=== PATIENT | male | born 1945 | race Caucasian/White ===

== ENCOUNTER 2023-11-03 21:03 | Outpatient (REF) | payer MEDICARE, SELFPAY ==
[2023-11-03 21:32] LABS: Basophils Absolute Auto 0.1 10^3/uL (0.0-0.1); Basophils Percent Auto 0.6 % (0.2-2.0); Eosinophils Absolute Auto 0.2 10^3/uL (0.0-0.7); Eosinophils Percent Auto 1.8 % (0.9-7.0); Hemoglobin 12.9 g/dL (14.0-18.0); Immature Granulocytes Abs Auto 0.16 10^3/uL (0.00-0.03); Immature Granulocytes Pct Auto 1.5 % (0.0-0.5); Lymphocytes Absolute Auto 1.4 10^3/uL (1.2-3.8); Mean Corpuscular HGB Conc 33.9 g/dL (29.9-35.2); Mean Corpuscular Hemoglobin 33.4 pg (25.9-34.0); Mean Corpuscular Volume 98.4 fL (80.0-94.0); Mean Platelet Volume 9.1 fL (9.5-13.5); Monocytes Absolute Auto 1.1 10^3/uL (0.3-0.8); Neutrophils Absolute Auto 7.8 10^3/uL (1.4-6.5); Neutrophils Percent Auto 73.1 % (43.0-75.0); Platelet Count 288 10^3/uL (150-450); Red Blood Count 3.86 10^6/uL (4.70-6.10); Red Cell Distribution Width 14.7 % (11.0-15.0); White Blood Count 10.7 10^3/uL (4.0-11.0)
[2023-11-03 21:46] LABS: Alanine Aminotransferase 17 U/L (16-63); Albumin Level 2.9 g/dL (3.4-5.0); Alkaline Phosphatase 98 U/L (46-116); Anion Gap 8.4; Aspartate Amino Transferase 12 U/L (15-37); BUN Creatinine Ratio 12.5; Bilirubin Total 0.6 mg/dL (0.2-1.0); Calcium 10.1 mg/dL (8.5-10.1); Carbon Dioxide 26.8 mmol/L (21.0-32.0); Chloride 100 mmol/L (98-107); Estimated GFR (African America >60 (>=60); Estimated GFR (Non-African Ame 51 (>=60); Globulin 2.9 g/dL; Glucose 95 mg/dL (74-106); Potassium 4.2 mmol/L (3.5-5.1); Sodium 131 mmol/L (136-145); Total Protein 5.8 g/dL (6.4-8.2)
== END 2023-11-03 21:04 | disposition home or self-care (01) ==
LOC: LAB 21:03
DX: C34.90 Malignant neoplasm of unspecified part of unspecified bronchus or lung (principal)
CPT/HCPCS: 36415; 80053; 85025

== ENCOUNTER 2023-12-28 19:04 | Outpatient (REF) | payer MEDICARE, SELFPAY ==
--- OUTSIDE RECORDS SUMMARY | 2023-12-28 19:11 | XMS_ITS | CCD ---
Author Organization [facility] Care Team Providers Care Ec Teacher Name Role Phone NIKKO GONZALEZ Primary Care Physician MD Jing Camarillo Attending Provider [phone] MD Jing Camarillo Attending Provider [phone] NO FAMILY, PHYSICIAN Primary Care Provider Unava ilJing Harrington Admitting Unavailable Jing Camarillo Attending Unavailable NO FAMILY, PHYSICIAN Primary Care Unavailable Jing Camarillo Attending Unavailable NO FAMILY, PHYSICIAN Primary Care Unavailable Jing Camarillo Admitting Unavailable Umang Abad MD Attending Unavaila ble BONNY LYNCH Admitting Unavailable BONNY LYNCH Attending Unavailable NIKKO GONZALEZ Primary Care Unavailable NIKKO GONZALEZ Primary Care Unavailable JING CAMARILLO Admitting Unavailable JING CAMARILLO Attending Unavailable NIKKO GONZALEZ Primary Care Unavailable NIKKO GONZALEZ Attending Unavailable NIKKO GONZALEZ Admitting Unavailable JING CAMARILLO Attending Unavailable NIKKO GONZALEZ Primary Care Unavailable Jing Camarillo MD Primary Care Provider [phone] KATRIN PATTERSON Referring Unavailable JING CAMARILLO Primary Care Unavailable KATRIN PATTERSON Attending Unavailable JING CAMARILLO Referring Unavailable JING CAMARILLO Primary Care Unavailable JNIG CAMARILLO MD Primary Care Unavailable JING CAMARILLO MD Attending Unavailable JING CAMARILLO MD Primary Care Unavailable Franny Lyman Attending Unavailable Franny Lyman Admitting Unavailable JING CAMARILLO MD Referring Unavailable JING CAMARILLO MD Primary Care Unavailable JING CAMARILLO MD Attending Unavailable JING CAMARILLO MD Admitting Unavailable DR. KATRIN PATTERSON Attending U navailable ASSENDR. KATRIN GUZMAN Admitting U kalenailable DANIELITO TIRADO, JING Johnson Primary Care Unavailable Nura, Franny Attending Unavailable Nura, Franny Admitting Unavailable DANIELITO TIRADO, JING Johnson Primary Care Unavailable DANIELITO TIRADO, JING Johnson Primary Care Unavailable Pebbles, Tam Johnson Attending Unavailable Pebbles, Tam Johnson Admitting Unavailable DANIELITO TIRADO, JING Johnson Primary Care Unavailable Nura, Franny Attending Unavailable Nura, Franny Admitting Unavailable DANIELITO TIRADO, JING Johnson Referring Unavailable Pebbles, Tam Johnson Attending Unavailable Pebbles, Tam Johnson Admitting Unavailable DANIELITO TIRADO, JING Johnson Primary Care Unavailable DANIELITO TIRADO, JING Johnson Primary Care Unavailable DANIELITO TIRADO, JING Johnson Attending Unavailable DANIELITO TIRADO, JING Johnson Primary Care Unavailable DANIELITO TIRADO, JING Johnson Primary Care Unavailable DANIELITO TIRADO, JING Johnson Attending Unavailable DANIELITO TIRADO, JING A Attending Unavailable DANIELITO TIRADO, JNIG Johnson Primary Care Unavailable DANIELITO TIRADO, JING A Attending Unavailable DANIELITO TIRADO, JING Johnson Primary Care Unavailable DANIELITO TIRADO, JING Johnson Attending Unavailable DANIELITO TIRADO, JING Johnson Primary Care Unavailable DANIELITO TIRADO, JING Johnson Attending Unavailable DANIELITO TIRADO, JING Johnson Primary Care Unavailable DANIELITO TIRADO, JING Johnson Attending Unavailable DANIELITO TIRADO, JING Johnson Primary Care Unavailable DANIELITO TIRADO, JING Johnson Primary Care Unavailable DANIELITO TIRADO, JING Johnson Attending Unavailable Allergies Allergy Classification Reported Allergen(s) Allergy Type Date of Onset Reaction(s) Facility (1 source) No Known Medication Allergies; Translations: [No Known Medication Allergies] Propensity to adverse reactions to drug (disorder) [facility] Medications Current Medications Medication Drug Class(es) Dates Sig (Normalized) Sig (Original) atorvastatin 20 mg oral tablet (1 source) HMG-CoA Reductase Inhibitor take 1 tablet by mouth once daily atorvastatin (LIPITOR) 20 mg tablet Take 1 tablet (20 mg total) by mouth nightly. 0 Active benzonatate 100 mg oral capsule (1 source) Non-narcotic Antitussive take 1 capsule by mouth three times daily as needed for cough benzonatate (TESSALON PERLES) 100 mg capsule Take 1 capsule (100 mg total) by mouth 3 (three) times a day as needed for cough. 0 Active bisacodyl 5 mg delayed release oral tablet (1 source) Stimulant Laxative Start: 06-28-2023 take 2 tablets by mouth once daily as needed for constipation bisacodyL (DULCOLAX) 5 mg EC tablet Take 2 tablets (10 mg total) by mouth daily as needed for constipation. 30 tablet 0 06/28/2023 Active 24 hr buPROPion hydrochloride 150 mg extended release oral tablet (1 source) Aminoketone take 1 tablet by mouth every twenty-four hours in the morning buPROPion XL (WELLBUTRIN XL) 150 mg 24 hr tablet Take 1 tablet (150 mg total) by mouth in the morning. 0 Active carvedilol 3.125 mg oral tablet (1 source) alpha-Adrenergic Wendy, beta-Adrenergic Wendy Start: 06-19-2021 take 1 tablet by mouth in the morning, then take 1 tablet by mouth at mealtime carvediloL (COREG) 3.125 mg tablet Take 1 tablet (3.125 mg total) by mouth in the morning and 1 tablet (3.125 mg total) in the evening. Take with meals. 0 06/19/2021 Active cholecalciferol, vitamin D3, (VITAMIN D3 ORAL) (1 source) take 2 tablets by mouth in the morning cholecalciferol, vitamin D3, (VITAMIN D3 ORAL) Take 2 tablets by mouth in the morning. 2000 units. 0 Active famotidine 40 mg oral tablet (1 source) Histamine-2 Receptor Antagonist take 1 tablet by mouth in the morning, then take 1 tablet by mouth at bedtime famotidine (PEPCID) 40 mg tablet Take 1 tablet (40 mg total) by mouth in the morning and 1 tablet (40 mg total) before bedtime. 0 Active finasteride 5 mg oral tablet (1 source) 5-alpha Reductase Inhibitor take 1 tablet by mouth in the morning finasteride (PROSCAR) 5 mg tablet Take 1 tablet (5 mg total) by mouth in the morning. 0 Active folic acid 0.8 mg oral capsule (1 source) folic acid 0.8 m g capsule Take by mouth daily. 0 Active furosemide 40 mg oral tablet (1 source) Loop Diuretic take 1 tablet by mouth once daily furosemide (LASIX) 40 mg tablet Take 1 tablet (40 mg total) by mouth daily. 0 Active Lanolin / Mineral Oil / Petrolatum (1 source) take 1 drop(s) into the eye(s) every six hours as needed lanolin/mineral oil/petrolatum (ARTIFICIAL TEARS OPHT) Instill to eye. Instill one drop in both eyes every 6 hours as needed 0 Active lisinopril 5 mg oral tablet (1 source) Angiotensin Converting Enzyme Inhibitor take 1 tablet by mouth in the morning lisinopriL (PRINIVIL,ZESTRIL) 5 mg tablet Take 1 tablet (5 mg total) by mouth in the morning. 0 Active magnesium hydroxide 80 mg/ml oral suspension (1 source) Start: 06-27-2023 magnesium hydroxide (MILK OF MAGNESIA) 400 mg/5 mL suspension Take 30 mL by mouth 2 (two) times a day as needed (if no BM by post-op day 2). 118 mL 0 06/27/2023 Active sennosides, fpc 8.6 mg oral tablet (1 source) take 1 tablet by mouth in the morning, then take 1 tablet by mouth at bedtime senna (SENOKOT) 8.6 mg tablet Take 1 tablet (8.6 mg total) by mouth in the morning and 1 tablet (8.6 mg total) before bedtime. 0 Active spironolactone 25 mg oral tablet (1 source) Aldosterone Antagonist take 0.5 tablet by mouth in the morning spironolactone (ALDACTONE) 25 mg tablet Take 0.5 tablets (12.5 mg total) by mouth in the morning. 0 Active tamsulosin hydrochloride 0.4 mg oral capsule (1 source) alpha-Adrenergic Wendy take 1 capsule by mouth once daily tamsulosin (FLOMAX) 0.4 mg capsule Take 1 capsule (0.4 mg total) by mouth nightly. 0 Active vitamin b12 0.5 mg oral tablet (1 source) Vitamin B12 take 2 tablets by mouth in the morning cyanocobalamin 500 MCG tablet Take 2 tablets (1,000 mcg total) by mouth in the morning. 0 Active warfarin sodium 1 mg oral tablet (1 source) Vitamin K Antagonist Start: 05-20-2021 take 4 tablets by mouth every other day, then take 5 tablets by mouth every other day warfarin (COUMADIN) 1 mg tablet Take by mouth. 4 mg every other day, 5 mg every other day 0 05/20/2021 Active Completed/Discontinued Medications Medication Drug Class(es) Dates Sig (Normalized) Sig (Original) DULCOLAX, BISACODYL, RECT (1 source) End: 11-05-2023 DULCOLAX, BISACODYL, RECT Insert into the rectum as needed. 0 11/05/2023 Discontinued traZODone 25 mg oral capsule (1 source) Serotonin Reuptake Inhibitor End: 11-05-2023 take 25 mg by mouth once daily trazodone HCl (TRAZODONE ORAL) Take 25 mg by mouth nightly. 0 11/05/2023 Discontinued Problems Active Problems Problem Classification Problem Date Documented Date Episodic/Chronic Acute cerebrovascular disease (1 source) Cerebrovascular accident; Translations: [Cerebral infarction, unspecified] 08-26-2021 Chronic Aortic; peripheral; and visceral artery aneurysms (1 source) Abdominal aortic aneurysm without rupture; Translations: [Abdominal aortic aneurysm (AAA) without rupture] Onset: 08-26-2021 08-26-2021 Chronic Congestive heart failure; nonhypertensive (1 source) Chronic systolic heart failure; Translations: [Chronic systolic (congestive) heart failure] 08-26-2021 Chronic Essential hypertension (1 source) Hypertensive disorder; Translations: [Essential (primary) hypertension] 08-26-2021 Chronic Other connective tissue disease (1 source) History of reverse prosthetic total arthroplasty of left shoulder; Translations: [Presence of left artificial shoulder joint] 11-03-2023 Chronic Other connective tissue disease (1 source) History of total knee arthroplasty; Translations: [Presence of right artificial knee joint] Onset: 08-26-2021 08-26-2021 Chronic Other connective tissue disease (2 sources) Presence of left artificial shoulder joint; Translations: [Presence of left artificial shoulder joint] Onset: 11-03-2023 Chronic Marcella-; endo-; and myocarditis; cardiomyopathy (except that caused by tuberculosis or sexually transmitted disease) (1 source) Cardiomyopathy; Translations: [Cardiomyopathy, unspecified] 08-26-2021 Chronic Pulmonary heart disease (1 source) Saddle embolus of pulmonary artery; Translations: [Saddle embolus of pulmonary artery without acute cor pulmonale] Onset: 08-26-2021 08-26-2021 Chronic Unclassified (1 source) prison (current) use of anticoagulants; Translations: [predatory animal exterminator (current) use of anticoagulants] Onset: 12-16-2022 Past or Other Problems Problem Classification Problem Date Documented Date Episodic/Chronic Biliary tract disease (1 source) Gallstone; Translations: [Calculus of gallbladder without cholecystitis without obstruction] Onset: 08-26-2021 08-26-2021 Episodic Fracture of lower limb (1 source) Fracture of femur; Translations: [Unspecified fracture of unspecified femur, initial encounter for closed fracture] Onset: 08-26-2021 08-26-2021 Episodic Joint disorders and dislocations; trauma-related (1 source) Anterior dislocation of shoulder joint; Translations: [Anterior dislocation of left humerus, sequela] Onset: 06-23-2023 06-23-2023 Episodic Neoplasms of unspecified nature or uncertain behavior (1 source) Neoplasm of lung ; 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 C[facility] Summaryon 11-16-2023 Coding Summary HTMLBase 64 XxtqtaxiLPk9wIb+PGhlYWQ+PE 6UFXCcK99tiIHtrU9pP8VJBAoN GobyEGYAOGjJEpLblzDsGD0gwL NjZXJu IC8+HW2pSILcLkwbyHGrv7C4yQ K6R90dnt5gELvtsKD4VSAdKcFv gldbu8ggiSh3ILiiMmneUpXh YUNpgK61YLB3iA78Ij69uMUqwJ Oiv9uadPx1GjMpPTBkGFT7zRiu EHfhz1ErMSEjH82mdPOnt3H2 BXPhaTagsKYcJcCtkAB1iI4dPI yecefwq7zgwlpxJks5gf53mGMu m5G4cRG8G7OxzfF7AXOdjBJa PcuxpQJJpY7kclucp7efeyhgJw YlPWWwFHo6JOg3CXZwyCvcCnMi SK40NGY3BYVulwWtJ2MrBUWd iZxtLlY0h5T6Sp4WC7MNHulqO3 VNTUFSWTwvdGQ+FJ75gz40O5Ky GoveEql6HCTiSPF4hYH9iS7e YBRtSJwyu1R2hAL1I4UcvpEvfe 9se3lySWQdULpvY89atFVpu3J2 OAYkiUZ7HNYsfDlfMlWceB08 Oyc+ZWVqyXerz2ClKjjbj9jdv1 fyrPp2OivfDYZlruDoeEkhXBH8 i5UcQy8uXBTguHC7zMQ6mS0h VbKyHyF0GMgmJ423WgAleJDjWy ftE86jJ7ZlkYE+SESjDxa7HOIy yYlyPA2dE8SaDMUwayitsAEz kBybNV7eGCOptufxRWJbiC1dVW WqB0n8SyQjSnR3HDbrA2MwOVKy ksbpKm07bQ5eCrZuAdM6TIfh L8MjqcE8GOUnsXOlMXrnHTU7Q2 7jc3Q4UGFaXDWnZNJ1jZO6jB4k bGlnbjogbGVmdDsgdmVydGlj HYsoRNsqM441UBFeaAmgJpQmFA luZyBEYXRlOiAgMDIvMDgvMjAy NDwvdGQ+WKXuHYS8tVjoCJXt qSSlFFspMr6oePpufYgjXY0tFS TaettgBHFkyL2oZLFzeEEtaYza UL1yAURdgixdd421YrKbSVH0 UBFlrIKeB4VntU4yMgOnNVMcLN RfH6NwuLNkVYzpV610NWvcReQ7 TOFawpYlQ7WcVFSxdFpsMgQ5 e2Q0Fa8Vw2EvrjyjT7IjmQGtKb MxPxnpEVe7Z9EjKkcwjPW+PC90 CNEkPM87EOd7UJL0iCqpAXgp AYIbV7ZqiW0rZeNySSSyOWMuSy c+PHRhYmxlIHdpZHRoPScxMDAl ObNhoHkqAV7nGj3eLDSzTLYp uQdeaJLiXdJvk0vuQKTfQKicAO 6puBsaV5IsjLP0PXCfa0y1Iw79 C94oO7MirOO+ZTJyuKM1gKD5 lP3eSzSmCeH9AYuvF561IoVenQ RnLhqth3yec5duxEs8UdK5JHTh uuRysEraNWW8s9CmQr51Y72a IHdpZHRoPSIxNSUiIHZhbGlnbj 3gdB5hEw9+ZZQfdAI9qLC5qL8y NsJiVrF7WPauZ530MpZamXAv Awqzh2tlq8qhiSe0SbEaGSUvpc KixJrqQLM1i3FoWn90A2ZsrUtk x3RfNdb5my62nGPgk1Z4lTL4 N4NfJWYbmavzePQkfPpmCH0qCP MpurobFNUeiS7iGZIkY9n9BqPt EdU3QUdxE2LdbuM9WUEjsKIh HGNmwXDVdG5uznlih3dvhwpaUu NsFIIfSIk6JCd4UGQdoDszOrJx GYU6StN7EQU3nQPpnY0zhWtw rppgxO8mUsm+VRF6jHVeqBPMIP 1lOjwvdGQ+WIMmHLC9mWibSOfw CUZubO3tMIEgP1z2YkMhNdJ9 ZJruO5SrbpW3FEXmeXLkDMOjhD ZMpA5rmpfte1fgwpiiYjHiWEFc XLo0XWo3ORQrdMmeBcXuFLU5 JnK3PSE2vIZrhF4wmEgbjonpkW 9wOyc+DfrzyWnjFJN2DQh5J4Sb Zlf5UBLioOzgEN6jsQCeJYll Rg1lzTsqsHboJP9aSGLiasqiu2 26YmTen7dcSGRdbPFfBJtjACL4 S76rp1I7BJRkGMZfZKR5rUO3 sG6oxIvogltndOBdxKjbsgOniB gmLYdzGJyoA327ICKwaDohMbHg YVu1C8DgDdp7ZMCdzKqcCX4o wMBnVBzpKp5thCfsbZkuZZ6sMT Odzcpka702CiQqo2kbWVOpzHUl OEsoRQT0U08rf3M2LZQgUIPj OFL1dGY3jC6ueKhvyogloYNagZ ihufJrgYgpIIhrRNghE896MSMm kNlmCcIcjOn4Y4NmWyj7BSUk zOvoSG1vpGYfHXoiBr4peZbghV fvJT5xLRKpyufad577RrMjb5zp RSYsqKVjFAudNLP1B09la3U6 NPIcTOPjDCA8rTJ7uY3xhYmqwb ogbGVmdDsgdmVydGljYWwtYWxp Y569GYSrsXxxMnSvzFwvwjJv JBwoBCa3D0KyKnapwCX+PC90YW OqVK18lATxgWOmd0lcpWx6FhQf WEOrTTD7xJprATgnv8MrWVLh W46keLXya0K7MTGgyAopxXEcCu DagGM3sW5uTLacgrjji4qpjhcb Fdcsy9xckd98aS26R03jBApr HGZnQISqKQXxDKJtiFoilq9lkX 9wIi8+OTCquAW9jJO1qQ9iJKAa YpK0JGjuC695DpGvoRVpRgnh f4ele5ncaGa1JhL2ZGZbbpKpxC buTQU9j3VjAo81S70eURtqGJRn POXtLERqSBPcvZckrj9bcW4f Ii8+QDUsgGX1gNW1lF9hZdHrWm A0CWnsF478EgGcxBAbQknlF86g A9KhrGR+RDTlYvz6SOKrkOfh MF7xcCZbCFweLt6yAHC7TqFaCi GrYYzfO2CyVGTflzsvlfdrdXW9 TWCqYVRmwI36Kb0iiYdgPKBh eTRKhH5bsante1pqxfrxJgMpZE TsVSf2AQk0OOSuvGosOcIoOJN1 FiG9HNR4kUTbnT7abLhplubv aF2cY0CkKREzinvbVz44mQ7wFj XsPcN3VKqlLno+U3pUNtmuS6AX AVFJOCp8O5OgFtr7EFEvjMwv OQ4fiYPrAAipZi5blYjhnPjqXM 4fXVLvlrqqGBVudJ3sIWJrnSXe pQfyYK6rYSNyhbznt102NxTq AZX9OERzyGPlU6CfbG0qEsDiYE AxDEOaF2AdqROgRFnqS901ZZcl QsX0ATXyyxTzD5SeRTOylUwi UmN1r1I0Zu4dTw5rBY8xPEJ2RC 21DA60cCZsm9I1aWG1P7PlDXRn vzvutvajjDM5AREkHYZauQ63 jAUoOLrnXz7zh9U7d646NMRsVS JvyH20Yz7rbKkxIACdsUKLxJ0c txwev3ghjdqqUbVwYIRrPEz4 GYi2ULPxtYolHmVaSTP5YfH5MB G4dAGghJ8jsYmweyawcG8hCtd+ GmdjDZPszkN3M9KqMju2LOPx mEaaRL2dlSAcGRipAx4tsRgibF tcWH4yVWGkmyftRPHlbZ4bARTi qOAonQihNJ2zOISrbuyvw453 CmLvDDH2RYMgiVHtC9QodQ7fYh YzPSWrJXIkC0JegGDvLDsaB046 DLvwQrL6ATDkpnTjW9AsGYUr qXgsTlR2e0N1Tu8HIWvKHJ90NM 63cQCum5V1kZM2L3TxHHUfhpce gocjpHE0BBOgNGDrmJ81tBTu IFjjPi4xj6Q5k130TQNsZKNwaF 48Bn6gbQoyGUAwtMVBlD4tipcv q2bkwyroThLjFJFiBMw9CMn4 HEWorMqoLhCoOOI5JhI7JKC6iQ LbuR8veXjpiffshX3bXdc+UmVj dJEspK3jGG68xODqxGpzwhY7 T9BnJpxqzIH+TA43FTWjUE23qA VbmTHbc3weePm9IoAgQHVtTEU6 gOjoLWrnn9YtCSXnY40odDTj m2D7GMAjqFychSMcEzApuFM2yM 3yBQglylnyr1xlhoslBktez3ct ya20fH69C27dMFhwQUWaMTFe OPTbRAWxsQsnaz6zmJ9jMy8+PG VcbZX9xDF5zH7hGzVzVqC9FNne E399DhDnxNXyTbhfm4nvh6rx uHi4EvLnFXJywtKjnCrsMDH8g7 JfNq06C88bEBpdVJRsJHGhTEEa LFVfvGjkkj0bhI6ySc2+PC9j i5ohde74rH56rWY+TZGqEDL2aX ylBJtdRATapO5gJCeuLeD5ZTJd CsRgcT10jKStTZomBo7zpGbe yHejSS2gYVAchjarq326RzBgq3 yhBLSybIDeGRojXCY2P62qj8C1 ONNbTCWnYMX3yGQ0jN3rhIim bjogbGVmdDsgdmVydGljYWwtYW psU993ZHPxhMxvSlBrjUKuG1ig hzNOCE6kPhpapTN+PHRkIHN0 vRduSLauYXMtcJ2mYGDiX4k1Vf OlCsU2GXfyN8RqpuR5ZSFvnKWb KLEuuXYNhV3iltgst2dysklf DaQzEKSfCZb7GKu0NLBnwZddXi XfGCS7HpS2TOT9bDKhyT5eaRgh qdeyaM3eZpn+RklOOjwvdGQ+ NYKmAGQ3lHgjRMlkQSFrbW1yGV KdG5g6SoNsAlC3YCdeZ3KwazD3 TFCnpYVeIWEvhFIQcP1lfpfl y7fbindkEfLtICLtZKp4ODv2GZ ComTtwTgGuAXL6GhP4GGP3tWUe fO6mbDgchrwdbH9dVtl+TVJO OjwvdGQ+RQFuYYQ4aTihPCqjZV FwsT0nNSVmC1i4ShYoApP8ZZhq N3AxmrJ4GNBkeESaQIVhoWPJ bW2icrzmz2emovarDjBpZLAoUU x8JEl6RXSdtEjeTyAdHME5EeW9 IBS9wPOjaL8vkSshbtvbmT8n Oyc+ZBE0WEB7FP53BM44E7TgLy wvdGFibGU+PHRhYmxlIHdpZHRo QYtoAGBqGqRvzShuWV3aMd9i ZGV (more content not included)... [facility] Outside [facility] 11-08-2023 Outside Records [id number]#1.00OTGTIFF [facility] Lab - Other Lab [facility] - Other Lab Results [id number]#1.00OTGTIFF [facility] Provider Orderson 11-06-2023 Provider Orders [id number]#1.00OT[facility]IFF [facility] XR SHOULDER LT MIN 2 VWSon 0 11-03-2023 XR SHOULDER LT MIN 2 VWS XR SHOULDER LT MIN 2 VWS CLINICAL INFORMATION: S/P reverse total shoulder arthroplasty, left TECHNIQUE: XR SHOULDER LT MIN 2 VWS 3 views left shoulder were obtained. Patient status post left shoulder arthroplasty. Hardware appears intact. No periimplant fracture. Alignment appears anatomic. IMPRESSION: Satisfactory postoperative shoulder Finalized by Сергей Masterson MD on 11/03/2023 12:32 PM [facility] XR Shoulder - left 2 Viewson 11-03-2023 CLINICAL INFORMATION : S/P reverse total shoulder arthroplasty, left TECHNIQUE: XR SHOULDER LT MIN 2 VWS 3 views left shoulder were obtained. Patient status post left shoulder arthroplasty. Hardware appears intact. No periimplant fracture. Alignment appears anatomic. IMPRESSION: Satisfactory postoperative shoulder Finalized by Сергей Masterson MD on 11/03/2023 12:32 [facility] CLINICAL INFORMATION: S/P reverse total shoulder arthroplasty, left TECHNIQUE: XR SHOULDER LT MIN 2 VWS 3 views left shoulder were obtained. Patient status post left shoulder arthroplasty. Hardware appears intact. No periimplant fracture. Alignment appears anatomic. IMPRESSION: Satisfactory postoperative shoulder Finalized by Сергей Masterson MD on 11/03/2023 12:[address] [facility] Radiology Study observation (narrative) [facility] XR Shoulder - left 2 ViewsOr dered By: Сергей Masterson on 11-03-[address] [facility] Work Phone: Coding Summaryon 10-30-2023 Coding Summary HTMLBase 64 MxsclyyoJLd1aNk+PGhlYWQ+PE 8YKCAcA88ceHAxmM0nG1QYYQhN UalnNNYWZKlESkFtceBvAF6sxL NjZXJu IC8+NB2pQDSqVbylqBFsi6J5qD S9V47cwl3eQIcoiII1GHPqAuQq dqjrk9ydgHh0MQxtMickKsVo HQCytN04UID6fX60Zl07rXLaeY Wow2fihXq5FwHhFLVyLUO9rBgd ENqrs5ViCMOuO21tpYMqx7Q0 YHWutRyndILkBmBwvDF9lQ5wNP rxespwq5cuetvcAqm7vm52oKHj l6M7cSR2U5QudhS5ZLJvsTYf UqlbgQAQtE6uopkpt1rcohbcLe WhEPUxJJz8WOe6QIWtdGqjGiXr BQ75PHM0HDRwjlCxL5XzURIh jDgkSbG1c8K7Ku5IK7THJgbpN8 VNTUFSWTwvdGQ+QZ61ca41M1Dx WsvhMjh1ZBWfMDJ8oTY3uJ0o YVFhLTgzr6J6xGM0P6IycwMlbm 2qx8mjSLQgAOmpL70iqMVql9X3 PKXyrEX5MYVmlKsyYjKgaZ76 Oyc+MBNhpLmsn3TvEaqon4qmr0 wxnEd7IegmGHYbcoQkrMudYVZ2 f2ViMb8kKNKilNR3dHV4mK0j OsEmRnJ5LHrsA820GbTaoRPxAg xyQ91nN6BwgFG+KZMeQud3CINo vTakOQ7xZ7UfSYEnuyeefJNe bDotSQ4nEDDmagijJUBjkI9mXL AnZ7w9JeImHmW8QVggF7HjTMJs zcrnKg82lV8pCtVzKpH2RDoz U1CmytD9XFZgeKLrUQcmFKF0X9 6ug4Z2CINpECXlGXX6jXS3hC2q bGlnbjogbGVmdDsgdmVydGlj ZAkxZVmiN085EFYboYodMoKpIJ luZyBEYXRlOiAgMDEvMjIvMjAy NDwvdGQ+QWNfSRS0cOkzCKSg sNTbQCzkEr1cbJkkaDhyLO4vSJ FsjnsmSZTayL6hFUQwnGApkBru GJ3cMPHsbinee110CuImQWR4 HSDgtVXvK6JghV2mPeOnUREeCV OaF4AnvUZqWBmqX029FOfxZnU8 ANAbnzEfD6OnRAJbiJsuLyU5 n0L7Sa7Nj4IitbfrK3XzaWRqUf DcPkcvVIt8S1AqVuazlGZ+PC90 BSBjWK51AXj7DHO0sOixAMrc CILdW0YomZ2mNkXcNPJqEPCpRt c+PHRhYmxlIHdpZHRoPScxMDAl PzBrjPpkNR1wYu6oZTKtFDYu fPvqfRPqMrZyl4arTNGyFFxiBX 3eaWbbJ7LxsJG8GKHoq6s5Ui31 S05vN9ZazUK+TBEjnXI5qGV0 aJ9xSbBkYqR4YOwjK739JzBnoP TsKcrhu4dwx9dmtFz2HrZ4TSJm xzNadIhtFGQ0u9VqAp95R63z IHdpZHRoPSIxNSUiIHZhbGlnbj 8htM4oPb6+KXSmdTX7oWK6nA7d MwSrXkW4VKyiC565IoFliIMr Eljmy7heu5zmkKy3KhWySOGyiq SjnGipWHD7s9AoKv79R1TwgOem r8RoRcu2ni39cZSwn4X1cJD1 D0DxZGLqgycmhENbpJddKT0eWB SldlvxEOSxiZ1yBLAeD7u7ZwFz TdO2FKyrR2TfcoQ2YUVohSVu GFJbzLQCyK5tjjuhi6ohprydAg NtEPHeSEf7JAv2RZKwoVnbQyUp GRM7VzS9OSX3rBPsgA6faFzs xgzxnJ4cDbk+DKN4gYGeeIKGWO 1lOjwvdGQ+FPPjSJK4nPkkDHyg UZGuqW5kHLMtB8a4RfQhDlH5 ZSlhB6FtozG9NVKccOBiIWHxjD KAhD2zeldph5yqoqzqKrPqLZOp KDu0SAl9WLDlmRbgLsQlJDB7 YsS1TGL2mHXflH0bnSevzijnnG 9wOyc+ZemxkDxlQJX8CNg2G6Zm Leb7DNRemJdpKT7rgXByWHgf Zb6doFyjkHrqGE7rSLGlbakhi3 60SwKup4amFOByiFTmRGdiRHV1 W15fv9L1QAKiJQMnQOS2lQW8 sM9qyKynexilsQByxOlwdxNzjF cgAQriVNztX794GETddBkcYeCx DPo2J7RhWbo1KAZrtAehAD1i nCXkNWrtEz8ddGgqkVcnUK0kCD Kxoxykh083RkJxg6rmOGLjtLZr MWboVHN9V80fv0Q9UTLsIXLb MDD7iAL7vJ5maDyvyikjuKQhiQ wtzyIgnQprLQwyPGkiT489FWXe pYquQbJkmZq4K1AzLsr1XSOh jGluVG9pbWKyJNmqDa1dlDoavU pkAC2iTAAjsuujk755TfImv9yx ECMayDWxZHgbFOO2D49fa7R9 UZZiQKLvNOV9nTV1kV5gzPelyd ogbGVmdDsgdmVydGljYWwtYWxp E824IWArfRpkDsUcsBonznHj QMznDQk1Q1WrVnmcqCH+PC90YW IsGQ10cGPffIAna6deiQg2ZsFm HYGqKCI9vWabXCndg1IuSNSn W82svRChx7V4MALmyCdtbTYwRi SojMR3pJ8kUCdsyqcja3stqiib Aqxdk2phhy12qT88T33dXFnx QHBhOLKcBKZeBFSgmFkivn7ynV 9wIi8+GFArkWJ9bHS4aN6eBEGw AsJ4PWwxF912VmWjgSYzJevr f9pjd3bvdGw4XwS5BINpjmSsmX jeWHD0d8CiZk45H71kKSekBCBb YNJmYFRzVNAkbDscxh0tvW3g Ii8+UNDovJL5sBN8hK6jOiPmRo F7ROqcX943YqSfrBWyNstqT05e I6JzyAC+FGLjVom9YBNoqSvi QO3mzBPyHXfsWe8qDWN1RzRkRi LcABtqZ3WlXMLizsglflksdJC6 SLMsXBBbeV14Fr8lzSjcCHRd lDGWrI5jswrup4whpeccWlVgGM LyRLs2PYa0WZMiqOavKuUkTCG2 GeQ8JEW8tJBmeH5qiSetxzmk kX3lO9XkXDSvhjyzDl38eF9nQq PyTyC0QFcoOew+Q6rRDccwT3WI SJZNLYf1V4LaYax4SJFscRip JJ6yrGVjPZcdQz1elKpowVtiCJ 8mTXBgloknLCAsvW0uIXQxvPXv oWkhRE8vOAPycmxjc002GxPn BUG7KOUywXAiX8XamK1sDpBlKU LdESLpZ3NmyUJgKVffM308TPqk FjE4PITfppYxC2MmCTIgfCkn PvD4e3O0Wb6uFi4hGO7gCHK4FB 95OJ73pHMha1G4yHP7Q3VuKHWf kmnhxeruyUD4UMGjRLGvxD31 lRIsWArlTr7ge4F7a627KHZtUQ FahH50Fw0xrIyfUDZbpDALwQ3i uvybq6pmaeouMiBpIFIzUSg5 CXj7UHLokZfsWwChEWJ1QiY3MY O0bWKsbS4ymQwtwhlarQ7cDig+ YtxeYGNhloT7M8TfLie6YIPf pJooDU5ziYQhXQaaNl8nzVsltG hmME2gZFVyoszxDVTcvT7jQZXs nTOqxRnxYQ2oCDOesuujl997 NoEaSCM4QDNooWDwD1FsyE7iZv AnQJMgLJIhM2MxqGBmVGmuM875 GNgkPvM5RZVapxSvC6XzDMDy gOmeTpU6n7A2So3NZReSPF19XU 68gJAnl7T5fZK7Z2McPXOoiare blfgkOV9KRLiOKVcgZ26rVBv JJikVd8ow1F4t317YXEwWIMoxZ 09Qa3lpOrxOCQqhBYStF9rtnqz t7vqrixtVsXsRCGtGMl9DRq9 HCHzwXrbGxKeNTH8DvS1CTH8rD WmnK1mpUvpbyctvK2bSeb+T1A8 R5TiIugcmLD+BN23TOHhWV05 rODliOZdz7lamTy3XsKhXEVoTD Q7fYowXZocm1XaCSGnD01xvHXc p2M8CDHuxMbvhAHgMtKcdIK8 wT9bAHlqzszlr8tflfweUxlgk6 oolf20dO27W17cHMyiHHEvBJAx FQWhAOUvbHftta3ozN2wRp0+ PZZwiJY8wIS5fV8iJzVqBpE0WH nmK256KhJrpSJfVzlcw6pbu0fj bUv6LuYoFXJzczPzxTpwFWV1 f0MoNq61I92sNZnlMFMuKDXzUU CmEVSyzQglmt4ysE4xGa1+PC9j f1uhub89nW08vFO+PHRkIHN0 kDlvLCooSJWvxN1vSWliIwY5UM OgMqIciC40sHBrLOppJs1nfXyu yUacCC0vIYKehhyoi310QxTv n3rvSZFfoBBaEEqfYPP2C27xs5 X4WOLcPYPgZNV9jII0nY0qkJoy bjogbGVmdDsgdmVydGljYWwt ALsdP791JKYkoYsbTxZwoTVdT6 qjuuFDJC5rMnudsMO+PHRkIHN0 fVzkFNmsZTAwwC0fGTOlC8z2 AtEtGvZ0AZfzU5TmgyH3HEOsqN DwXZPryVHNvH0ulibds8pwbinl GiDsUSUpUNi7GNd5IABvoJif RkIgXLS7XzN0DFJ9uZOpwY1iaU tgoywmpC8vJcl+RklOOjwvdGQ+ RVLuEVZ7aUkbNRftEDSxhZ8s WRUuM1r6KoRgEuO6JDnqD8Jgpw O9IDHunUQsQIFayVZKmR9zwblz b6hvghjkNxDwATRtJTq2YFh3 KHCdpPzbMkPzDBU0JuQ7NRB6qM YvmT7urNevpovezV3lBow+TVJO OjwvdGQ+LXIgSYF1zKjfTGqe QMZvgI5hHCVoL0u4ZiMsKsT2QU dzO8PsddE9GGUoiTSzFCXmuSSZ kA2jjqhrj7tkmqvvBnTpJTQy YDk2TLc9JHXztYohUlKxTYB5Zk B4MNT2xKEblX3sbArpcezbwF1g Oyc+BFI6ZOH9PL77FB66M1Cc PjwvdGFibGU+PHRhYmxlIHdpZH WdQIwdNQLqXaKbsKpwZM7nOl7p ZECsBEOeuZlwmJVdQbVng4uq YXB (more content not included)... [facility] Outside Recordson 10-26-2023 Outside Records [id number] [facility] CT Chest W/O Contraston 10-09 CT Chest W/O Contrast HISTORY: Malignant neoplasm of middle lobe, bronchus, or lung. COMPARISON: CT chest 05/17/2023 TECHNIQUE: Multiple axial images of the chest were obtained with IV contrast Multiplanar reformats including multiplanar maximum intensity projection images were acquired. All CT scans at this facility use dose modulation, iterative reconstruction, and/or weight based dosing when appropriate to reduce radiation dose to as low as reasonably achievable. FINDINGS: Visualized portion of the thyroid gland appears within normal limits. No axillary, mediastinal, or hilar lymphadenopathy. No thoracic aortic aneurysm. Atherosclerotic calcification of the thoracic aorta. Heart size is within normal limits. Coronary artery calcifications are identified. No significant pericardial effusion. Mild interval decrease in size of a spiculated mass within the right upper lobe that now measures up to approximately 2.2 x 1 1.8 cm (previously 2.7 x 1.4 x 1.5 cm by my measurement. This lesion extends to the pleura where there is pleural thickening however the pleural thickening has mildly decreased since prior examination. Moderate emphysema. No pneumothorax or pleural effusion. No acute osseous abnormality. Scoliosis and degenerative changes of the spine. The visualized upper abdomen demonstrates no acute abnormality. Severe atrophy of the left kidney noted. IMPRESSION: Mild interval decrease in size of a spiculated right upper lobe mass. Moderate emphysema. Final Signed (Electronic Signature): Darrel Oneal DO 10/25/23 1:54 pm Technologist: Shaneka RAE [facility] Facesheeton 10-25-2023 Facesheet [id number]#1.00OTGTIFF [facility] Lab - Other Lab [facility] Lab - Other Lab Results [id number]#[facility] 09-08-2023 Outside Records [id number]#1.00[facility] - Other Lab [facility] - Other Lab Results [id number]#1.00[facility] Rad - Other Radiology Report on 08-25-2023 Rad - Other Radiology Report [id number]#1.[facility] COAGULATIONOrdered By: Veronica Mccarthy on 08-01-2023 INR Coag (PPP) [Relative time] 2.9 {INR} Invalid Interpretation Code [facility] [place] Auto Coag Comment on above: Interpretive Data: I NR results are specifically intended to assess patients stabilized on long-term Anticoagulation therapy suggested INR s Less Intensive Anticoagulation 2.0 3.0 Conventional Range 3.0 4.5 PT Coag (PPP) [Time] 33.8 s High 9.4 - 1 2.5 second(s) [facility] [place] Auto Coag Comment on above: Interpretive Data: 1 5 days - 4 weeks 1 - 5 months 6 -11 months 1-5 years 6-10 years 11 -17 years Mean: 11.2 (9.5-12.6) Mean: 11.0 (9.7-12.8) Mean: 11.0 (9.8-13.0) Mean: 11.3 (9.9-13.4) Mean: 11.7 (10.0-14.6) Mean: 11.8 (10.0 - 14.1) Pediatric Reference ranges were obtained from a study by Jorge Alberto Weaver et al. prepared from 1437 samples obtained at 7 different centers using the same coagulation reagent and instrumentation as [facility] [place]. Currently there are no coagulation studies available worldwide for children to 14 days, and no normal ranges. PTon 08-01-2023 INR Coag (PPP) [Relative time] 2.9 {INR} Invalid Interpretation Code [facility] Comment on above: Result Comment: INR results are specifically intended to assess patients stabilized on long-term Anticoagulation therapy suggested INR?s ?Less Intensive Anticoagulation? 2.0 ? 3.0 Conventional Range 3.0 ? 4.5 Performed By: #### [id number] #### [facility] [address] [place] [address] PT Coag (PPP) [Time] 33.8 second(s) High 9.4-12.5 [facility] Comment on above: Result Comment: 15 d ays - 4 weeks 1 - 5 months 6 -11 months 1- 5 years 6-10 years 11 -17 years Mean: 11.2 (9.5-12.6) Mean: 11.0 (9.7-12.8) Mean: 11.0 (9.8-13.0) Mean: 11.3 (9.9-13.4) Mean: 11.7 (10.0-14.6) Mean: 11.8 (10.0 - 14.1) Pediatric Reference ranges were obtained from a study by brett Li al. prepared from 1437 samples obtained at 7 different centers using the same coagulation reagent and instrumentation as [facility] [place]. Currently there are no coagulation studies available worldwide for children to 14 days, and no normal ranges. Performed By: #### [id number] #### [facility] [address] [place] [address] Physician Orderon 08-01-2023 Physician Order [id number]#1.00TIFF Normal [facility] Outside Recordson 07-31-2023 Outside Records [id number]#1.00OTGTIFF [facility] Outside Records [id number]#1.00OTGTIF F [facility] Outside Recordson 07-20-2023 Outside Records [id number]#1.00OTGTIFF [facility] Outside Records [id number]#1.00[facility] - Other Radiology Report on 07-20-2023 Rad - Other Radiology Report [id number][facility]-18-2023 Outside Records [id number]#[facility] 07-17-2023 Outside Records [id number]#1.00[facility] Outside Recordson 06-28-2023 Outside Records [id number]#1.00[facility] Coding Summaryon 06-26-2023 Coding Summary HTMLBase 64 GxobafueGJl2vXv+PGhlYWQ+PE 2TGJTkE51hfVRekB7uS6SLFHsL SimxPZMAHMiAWyLtgoCoYH2wdI NjZXJu IC8+FY5pHCMnVogdlUDct8I9mV N2O36asd7cFMusmYG1SAYtSuWz ancby8bsmGv1LOavSbvvCkZy SJLikW02JGV9nR63Jf65mPGlqW Upr4tpaIy2SxKlARAqYLP1mNyt MJcsn1JhGIWxZ78jsQZxy1L3 EBIdcGriaXRfWsRmfZJ4oT5hGM umjakvp2qzcjfjTyf1mo10eZSh l0L9wXX1W1JuujQ8MEHxpDPh FmzjiIWFgB3kysizz3psgpnlCu HvBYPlTKz0BHp6NFIriGlgMjWy RK48WRS9HBXstsSjB2LfOCBh hXcfLxM9j1O9Wz0QY7RZYaxtU1 VNTUFSWTwvdGQ+BC59yq92P3Rl KichUnz9GFOgWZT1mQB6zR5p QVYjYErps8U8cJG3K5AakaCfau 0bg0ihQOSlCJgwX79awTLdn0U1 PJNnzHM1RJKupKrmBhBgqL74 Oyc+EDXssZzcy7ChSaouw2uyn4 dlyFd9UfrzJYHaqgKzpIwuWED7 k4YfTk1hOFEocHV1cLK6uR4u BlFsJaR8RHvfG734QlEyxVSaIw saU36hT0IxrRU+NQTgMey1NFCk pFlwLN1qK9FeNRFwipdvjXBo uEbcTO5lSSQifneaQMLdxG0uMB CjD3m4TpTpHfN1NHcqO7CnRUYh lqolQt79jC5vTtAhYqH2UMwh N9DzlzY9JSVsxRGyBAptVKC2Q8 4gn4S8BLFuUPNhKEM3gUY8kP9h bGlnbjogbGVmdDsgdmVydGlj FKlqYQijA833TAVubMhhWxUeJR luZyBEYXRlOiAgMDkvMTgvMjAy MzwvdGQ+TPPuIUO3zAljQZBu aCOuZGotDn4whWqgfMwaND7pXZ ExankaYERmtW2fVCEiwSBejFdv KF4iTBObsmeye061FmJeSDQ8 CIJwwXWjP6NeoO1aYlMcAPTsLU CvM4EkbREsQCveT138BJcmVbA4 XUBmsdEbY6AdJOKvgNziZaK3 p2P5Gz7Tk3EzdldfM2KwiEJqHz XfNwwzOEh9H8MrJihyrRH+PC90 TSLaZP19RSf5YOI4dEtfCKij HUCdC0FioH4mVsWdSKVtCYGjZy c+PHRhYmxlIHdpZHRoPScxMDAl ZxPwnHovDH3sNl7eRCKeLTCs vSfqgTXjXsPxz9ymRTHaXWjuBR 7glZjlE1VxxPB2IDYdf3x8Ho23 P26uS1LvqAI+BUQyyTW2fUV1 hP5rQoTmSlM9JNjxP816XtQqqV WnXlyij0njm6vrtCd6IiL8EOFt sbWjqJuaTWZ1j5RsQv20H43g IHdpZHRoPSIxNSUiIHZhbGlnbj 9rdN9cUv7+NOAqlKD6dWI7mR0j KaWhMqI8UOdqK656NnJndGFo Bevyg6pho2opoBn4HzJbMZRndk AsmJpxIMY7d7JhTz29P3FwvEgm z8FpZni9kq28qFEmj8L4qFA6 F1CsCXCmjtzeiHHjrTxeBV8sYQ JohpftXDLagG1yDKGkR6b8HzFo UvO8CFvkN0QlegI8INPyzZGk JVAqvNPTbI6shisto9tiqqliNi CqHIFaOOe7PRm1EUGccHtmLxAg AMP5YlF1SHM2tDKloE4lsGxn tilbnU1eJjv+OYA4aKQmvXNJSW 1lOjwvdGQ+QNVpADY0pJovEFiz SRHvvF5zDEWnF5u5VqJaVrD6 AJwrJ1OmtzG8FMPjuNYdOILyhO WRsD4ymqakd4ubwoshZaSpTUPf HRj9GDf5ZHEwlLqiFjJcWAK3 NaZ8MII5sVEoxH5ejNucyzcbwW 9wOyc+GarmtDqwGQT0CRv5F8Cw Cuc7AJHonZboQQ3mjQTwOOuf Mt6kiCxjmQdjTV4hKFYgtmutv7 99WiIll4vnGHHplYYtEFjlSCN5 Q93oe2N7ZDPgKCTxLGL0aBO3 zM1rtKwjwmuarRCfwRbuutBueT apFXwsQYeqN564QRDvwCxjYtBt IHt7B2UxWaw7UOLpzStuWT8j tDJuDGaoCm2xbWmggYgdCK3mQM Pqmsufl937EjVea2xpAEYswDQo FCztPAX3Z94uf1X4RQRvTLZu YJP2hIV8cI9xsLyzryanmHBjvS zcdwWzsAqhESrhZHhoU946JZEk fFdcWyTpyTz2V8OxVuf5QYRr gBztZG5cqMBjTFxhFb6mbUdfhQ exMN2bKIIphzled707PpIuy5vs JUYqkPOdSHyeLHY8P94fu5B7 YWWwFCCxQJF2bTR4kK1reUpzpq ogbGVmdDsgdmVydGljYWwtYWxp N062ZCXktWtdWbXbdSwjyaYx XYduJRy7C9HlHmstjJA+PC90YW YeHQ65eQXytFFgl5saoIz3JyXe KCYmLYP9yJvbAKwfh3JhKAUy I15ohYMsj6U9OGCatTbszZRaSl UfzMC6hR4pLYfxidgqi3jlftyt Hwsks2pssm83pP76W66aYJwo TOVpYGOlISIiQAQwyFdofx7vdB 9wIi8+YFVvyFT4kVY8sV9mSXAb ReV5WHijT045RaDqrTXgAqjj e7mqg0regLq7OjX2RBGpwzUofW bqHKX1z1MwXw62C05aKJzkAGTi SYDhPUGgTDQxuAropj1dlS7o Ii8+NENpbHH6kMT7kT1kRnTpYn L4AEkqA135UnBhaRYvYnqzM33m H3ZfkLZ+ILQiPsa2FBWmqNqz YA7jdJSlUHxcOz4eQMK0BgOfZv OcKIeyH8RoNOGjfrimkkckmRW9 WLBvBQGfgQ86Hi2fhObyGLBa wVVHkF1psdkmp9tlgvoaJwDbLN VdGKc9LJz1HMVdeEvrSkEoDVG4 YrB8UDX4iSDeuL1tuIdjslmn lB5gT2FkSEJwclnxJr31sV8wMe XhZeM2KSnhBpf+D1mDRbtjM4XB RBBKIXb7J3FqEmx9XBYyeHzj FY2cwQTiIKdkVy0rgGwvfDoeMP 5bJPHbssgoSHAvsW9fYAChqHZv zFtqEW4qTPEujnqjg121ZxVt BKZ0BZHhdACuJ1NgoC5ySgLyJV AbARIoJ4FuqMEaLSsjM893MRcg ClI0KVQvjoEmL0GuQVTzsFbf NuC9e9A0Rc4xZs1yUX7lGGR5RY 84GU16yERsp4U5fYP2V8PkLDAv zogyhembcLF5WBZjOERcbJ00 xENpQRwoLi4cp0V1p518WPCjMS DsiH11Jp5wkWrzWODclHWPfL5r eicfo3qkagonPgWfKOPkOKo7 QXq9PQWwdHveVjCmQUT9RhR1GA H1bFBbhU3ifCbagcqomS2jLdr+ HyrdERBgkwP6H7DhIto4MNOa xAmkIR6mpMMxUYmoMa2klOiukR svQK5qHSEbtylpGYNmqX8jMWMt aIRdiNprYN0cDWNfpzcgm965 SqSjEBG2XFNjjTExZ3TlbE5bCx LnSRSsKGNrP8XmyWLnWXemJ309 WQimUqB9VSZsozUkB1PfOPTk pWnwEwE6l2P7Cd4MWAiKXU58LA 81vYOnq6M5hIQ8N4JqOEYnryuz bruzsYP0HVGnDMYzpA84oXIb WDemPs0zv8X7v006ZEWtYVXtnB 82Iy4ffBrtHYMsrUBZaB3uhwmw k4qcamkwXuJvRCTgGUv1EDb3 DHZkmFxkSzEwMBS6WjN1FGZ2xZ NxxX2scTvzxkzxxZ0nCju+T1A8 M8VwMveccJQ+IG32XRPvAO56 yKWueBOhj3lbiJq1ClRmPWJhGG R7kEqzWGsot6YoTQVaG28zoAWf n7G5QSHqnVqmtZFuLjFtlIE2 mZ4nARczzoxft0cvnfkhWnyyc8 vdzw95bT33P70dICzmZVMrEDSz YWQnALYhxScfgg3mcA8qYw8+ NMRxjBX7aQH9hA0vIiAnAsS6MW poQ300QdVbqBPhZjcel9ufo1ib eVk9WeZhXNCflkNvvEgkLWI0 r5QeKv41I63nZRbmEDWyBFQwPI RuAJNiwXflxy4uhE7fYy7+PC9j z7olmi17nR61jPE+PHRkIHN0 vGvwBBgaSINxiT2aKHrsAeB4CJ UcUxKnoD50fNLhBEtgBw3xkVyl qCncPI4jORNgcswxs336NfFi h2ifSTQaxRZuSHfeFOJ7P86jp9 N1RYXsZJNtLGS8jDY9uB0cbQee bjogbGVmdDsgdmVydGljYWwt LEbjR788DPRgnWnyJlYmnCYxW9 jgquBTQP7eYjdosGZ+PHRkIHN0 dUlsQFfzVZFryF6tPWQoK7y8 OaUyAcM9KSgeC8FjdcS7RUIjxE JrFHUvjTJKwC0pooraz6dwgpzs HnYvIUWvMPe9OPt8EEWrkJgg MaNdTSU7PtM0GPU3xPXumL5rgW evclonjW2aAgk+RklOOjwvdGQ+ DNEeMUX5gDmzRZwhFSXhrY8h WGTsE3a9VuPqZgH5NGoaX6Wwyo S6YMJzgUJsWMVnwFPAqH2zzotp i5bqjqynSnHiURCyWOf2MDr3 ASEqsImjSkQnIHC2GhU4HRE4cM VyaH1xgXanaybosH9sYio+TVJO OjwvdGQ+NBXwMAX9aSpvZMxk GIJowC9xHXVaN2o1AhRbRaG4KD qpC7NeyoQ2EMQdwHQqUVOwqTFI cI4jufxnm0jojaneJqQsQERj VXc8SGs7EOJgtWiuPvYeZCW3Ul P9LZL4mKLopJ7tlZuuiftdfX4x Oyc+UDJ9WRH7SO06UJ35R8Ru PjwvdGFibGU+PHRhYmxlIHdpZH JvVUrsABUcUfIejUadIZ0sSb3h RQXlZIAftZzsuOXaOsGon0vn YXB (more content not included)... [facility] Outside Recordson 06-26-2023 Outside Records [id number]#1.00OTGTIFF [facility] Outside Recordson 06-23-2023 Outside Records [id number]#1.00OTGTIFF [facility] Outside Records [id number]#1.00OTGTIFF [facility] C MRSA Screenon 06-22-2023 C MRSA Screen Negative [facility] Comment on above: Performed By: #### [id number] ####[facility] (DEFAULT)[address] [place] [address] Outside Recordson 06-22-2023 Outside Records [id number]#[facility] C[facility] Summaryon 06-21-2023 Coding Summary HTMLBase 64 NflczsidYMu8fEw+PGhlYWQ+PE 4NYOJaL45adUWgqA7lN7DFKPtG VtdgPUGQVOpITbOwdtAlOB2kmW NjZXJu IC8+QU2hYWQkHybclZGby0R4mB Q9C44czf6yZYdvwWZ3JGZgPjZx cmgre4mudUo9GFxmZhhoEzZh ICJwjZ67GHC7yW92Lq42xSCozR Rbf2caxOg7BeVgMWIcHGD7rPge ERcuo0JrCBOxY46jsAUeh4V5 NPQwhVtkgMWnCxKleZV9uK4sRP rxrmifl2jzyahaOkc1wm02cAHo z7K8yBD1I6EmwoB8NYHdsZFk JianjISXpO1iivsom3qepmcpYy PxRYLwHWl0BSx4AENmlFbhWkHr YQ53QCF3FRGcleBdZ3SiCKCh vQapKzX6x7R9Bl0DJ3ZUDwugW5 VNTUFSWTwvdGQ+LG11qc81P1Pl QmpuKpq4JHTdJUC7nUL4gG7o ZVPnGTvyo5M9zEF6F7UvqmJeuj 2hv9wiBRDeCRbyD85kaVUxc2L3 MSFylOA0MQMzgGfhMfAxkI76 Oyc+MMDuzGiho9RhHcylb3eaq8 eqnBy7FzbbZTQlyhXkoZlbUZD8 c2GfNa8uPXSriXO3jBR0aU9b HxVgKwC6WQhmP314YaNwfWXgVf taA55kO5OlvUZ+LOKfElw4HMJl uBaxFA8rP2JvNPWxcatyhOPs uWmnUB9jKPQtjtqmYLLtsP4xFD ZfD7d7GrPmCqQ6WDsnZ8ElXWFo pvysWw75gX4tNgMuPkP6DImx Q9SvfrQ4YYKohXSaSBojOIB5V4 3gq7Y3DPZwONGmLAL9uJI8bC2h bGlnbjogbGVmdDsgdmVydGlj ABmrAFsdV122RPQptDieXkYsCY luZyBEYXRlOiAgMDkvMTMvMjAy MzwvdGQ+PHRiRYO9yZgtNSZa nEJfKNmqCe7duNspeCyxCF8vJW HxyhgnOEDxcG4yPCRgrSEnhPxj LN6dHBXjtfnox843SxZyDWS4 LSOoaURfD1UktG2gSfVvXRYqPM EcZ2StoDWaQWyoH894ASpbEcM9 QJRdsyMqS1BaGOHdcVebLeB9 c9O7Oe3En8WiwnybE6AqjDCuJi MxWjwfLUo6J0WuBkatyJX+PC90 OIIsNF09SDn9MJB9nKoyDEgg JSBcI0HjwY8nZiPtZMYqGOKvBo c+PHRhYmxlIHdpZHRoPScxMDAl DrXbhQmdCH7qRv3eVXKdJEMh wJqrmBYuXkFff6izIMAnUQnzCX 8nmGjwU5QycLP5AWFzn2j6Ay71 E14dG9LdyRM+PGEsuGA9hCT2 sR0aFzJqHdE9PDalZ527CwNoaH RwLuuwv4frb1hqsJd7ZsZ0HNTy kkZmsEqdQVL8n7AwYp23K10q IHdpZHRoPSIxNSUiIHZhbGlnbj 0vyV2fGd4+UGGwfOQ1vYO6kB3p WhYtUuF0ZVlvE317KrVhuUBk Sxlgx7udv3xaaDw4EkQdNZOiib AblMdzPJR9q4TuPt11Z8MriJcx v3LnWtv0yi25fAOcf9T0eYA9 F9KfITAtezsxhYCkrIkfNH3zEH KpynwfUGLsdS3tFUFbW5v9JyGk EaW8DWhtJ6LgpaD4GKQkjUGa QNYbkUXTiH5xshaog4ncywbyCv AiXVPqKSj9GZv8ZSHbjYezRsSb COP9IgY9CYS4wRZbhD3hsYba jmhjoT3yZrt+DJO8nMHceXWJKD 1lOjwvdGQ+APMiVHA7kDyeMKmy JMOspF4wAICxC7v9UkJrTmL4 PYjsP2FcqwR2QVJiiRNeKMGdqW VUtJ3tqorhr8svwpigAhRcAYZn PXy3QKy0SDNblMxoCuHqCZM0 DiA2UWO1tLKpqX7zxAlluujmvL 9wOyc+SzlivHmlWLI9HId5N0Mr Kls0UWGltFshRI4evFYvLYqc Ud6mzTlcgGloJS7aYTZmpbmvc9 63BcLbb9anYOQxpPUwOSyvIIY5 W92ri2B3ARElQHUjHQI4dYW1 uB6zjOyndwnubFFneSyvmxKnlP zmIFjfPPncY135ANZhkWyuOvQl XEa4G8QyVzq9FNHcnAjwGX7z lBZqMJjkYz4thGfrlMvnPK6iJQ Gtxgboo242EiYbe4jpKYQfbXKi WMiwRSW5D39qo4D6AJOmXRZj TZA9bBE1uX4pnWssecsblGYqaA vwjxTdvCcgDAjyWZsqO377MAVh iYctQsRcdAw4T3LqKvi6MMPe cQamWE6fiTFpTCslLv0egFyfwH tlMJ1iOBZiejtyf936MjMas4uj JWLmiIKtOKofPKO4U28ys3U3 FLNuRYYrAEN9oDH2pU5ftFnuko ogbGVmdDsgdmVydGljYWwtYWxp T038ANPwgMtmYeDthDcgnwFr YBbmNJu2R2TjHrjsjCG+PC90YW SrYQ40gCUkdVNfo1rdsGt9InYn IKIjQXG5dAenNEzqs5AuUVUq C98xgSHzj8H0OJCqlLfnsYJkWz PvfIZ0vU5xHYtamtvwf6bhvemp Thjqr5mahq76oT64D70mIHxx UUWuBMYcBBDjSAXbmCmogf8ywA 9wIi8+ZHSxjQI8nYN6pB2dDWWr CxJ7BKixC734VyGgfJQtFvwb u1rre4lwoSz5ViN5AGMggbWlwG ktELX9i5KtPn94B99xOVcnTJBh RSHnVMZdQSKzrFrcxm7ciP7s Ii8+KXMjfQE9eMT6xV0dQiIwTa O6UArkK722AhAlyUIbEfgxC53t Y9RjwYH+IXKrMkq6TAErnZuu LF0kbLBnKXvoLg3gHVQ5TxQfEp HcEXpuT0RdFABrwzwwidawnZI9 NGBsFWJytX95Bp6niYyyCXUs xRNLuH2ddrjlq7ysifvhBaAsUJ YbWIi7WQg0BDKriVueYtVoNTX3 OcH1DLL2gEIbnA7jeAzpjkfj oL0pD3JiNHIpciavEs36gI0eFd ZbFsI0WJjbUou+K5oLMwuhH5JO XTHCZKs7A9XdMxz9YGAcaUqk QV2frHFaCFstGh8qrAffcNmfEQ 8nQSBudqfwVMQynB9sFVGqdMBu cUcjSY9iCGAvfbsii896PwRl IZT0VMZbiORrX6XetH0nZmLiBT GuTXGxK6HbxJQvANxwG395RYfv FjD5TBEzjzDgF3RqNZFbrVbv NaS7c1X1Yf6pCz5vYN0rFCJ4VY 83WF27rQKnt6D2gNG2Q6MdAKDq mpfawtoieOC9OFZkCLJcpP86 qVNzWVemDb7xs1V5i127XOZlFH NgqQ99Yj2oaKxcAWNvkRGJkQ5q lajcb7mejrtwMkKiSGOsKHh7 OZp5JIFxaBtrVdSvNCW5ZlP5VH Q6iBObfK1omBpimgzpgU5rIhk+ RzhnLNBvzyV6B7FdRbt7YKYa oQmfTB2dpHMaJZruGr6iuLfukD oyNP1oSLCuituhLLTzhZ2iPWMh tZCvjNguAI9fCEHlkcixz755 QfZvQNC6WAGtiQJuI3GdxG8dXm EzLIHhMGTnL3SajYKaEYguX794 AQxgTyM4LAYkblOyS9XcZYIg wKevNiA2l0T6Yj1BYXmVPF73GE 87ePGyv9G6sHO2Y0QfTDHjzgem wysbfFE8KWZxUQIuyL72xIPx BJmvCq6ll4L0d867EWBoGXWnpY 42Cw1zmOokDASghWHXoG8ckzny e6lauuecQtVjPRHcGXy8GEu8 BZEmkOcpFtRrUAT0RvR0KJX7mU WvoY7imPsrbbwpgH2hXsl+T3V0 jKR1cKCipJGuvuHsNKPhPJtt dGQ+DC81pi26D7YxDeuqHfx7RT FdQRQ6zYC8jE6qUEChCOrgj5M6 nJA5M1JcpgCbmu7ck8uiHNXz NGhjH58uaHMxn7Q5OUDduFD6IS AkmCuxYlFcnF91Ray+PGNvbGdy h1PfWmkxo1cph5kwzMp4SrKj TOTcfwIrcMgkWLZ9v5KnNm86E9 9sIHdpZHRoPSIzMCUiIHZhbGln mb8cqC9hHg5+OWAjnFY4fNN3 zH2vCpOgPtY5NJijX619PpRujR OkOogul7tmw8nkiCi9AbLbPNSj clCulXhjFSA5d1EgLf05B7Eo rBtqm0MkOfb4yu69eYTaa7J4bA K8K5JgZFXhihmywLTdqHlsMQ6n XMUhynxaCWXsbI2eDQEfQ2f9 DjMgLcI8VWkgT5YhfnM7HEDcvQ YlIYUftATRxF0qqgyge2tdgdgr UfWeSGJfSQy6BNz0AORfsVqo CxLcZSH4DvX4RBS2zXYmeO8kwM crfecjeF4gEdp+CXz8g3frhEDv TC0tlHA0NK31MR34cIOcj5I2 qTU8I9RjYGYzdaqqktjvwFS4VR PdBIWmzX04Iy0fhKnoJi3uZWJs QPL9WEEleHLbH5CpyH4jLeWv IEBiHCPbV2OnjHRdGJqfU187GE dkTqP4XPCbljPsD2XfSZYqgIds VpJ9n5U6Pq7JMT39MG03WX59 dIVzi3F3jAT9N7XpCQAluhhgoj fhwMP8MAGfZQPqgK67Xg8teGzk Rb5kKQIsTFW3JMMmgDJhS3Jq eI8qQsFdYIZzDYIxJ7EyfSMnTA rpQ525NNiaHhW5ONOgvvPqU9Pg UZQxjKdkSsM4z8X3Eb0BRs68 MF75MX52wZUds4V7dBT5E6HhQD NytfnsokpxjJX1ONRgKYSfmJ73 Qx9wfQsjRl6yJTFcPRV3LYCw vYVoE8ZdjR5dZsUtIDMgTSOzH4 LqqVOlRKblA533RLlyXvD7WAOq oyEdV4QzUUGcgKcmBtI1m8U2 Fz6ZMXiotgo4J4QfMaqkuOS+PC 61BJVkXT42cFSyqVSgq7yqdWj0 EbYfMFWvAGX2vMknGQsnm7Pz ZXI (more content not included)... [facility] Provider Orderson 06-21-2023 Provider Orders [id number][facility]-20-2023 Consent Forms [id number]#1[facility] Stress Teston 06-20-2023 Stress Test [id number][facility] CV Stress ECGon 06-19-2023 CV Stress ECG DATE OF STUDY: 2022 CV STRESS ECG The patient was brought to the cardiac testing area. The resting blood pressure is 128/80 with a pulse of approximately 80 bpm. The baseline ECG shows a sinus rhythm with occasional premature atrial contractions and a left bundle branch block. Per protocol, the patient was infused with intravenous LEXISCAN followed by intravenous Cardiolite. There was no significant change in the blood pressure or pulse. There were occasional premature ventricular contractions and premature atrial contractions. There was no change in the ECG from the baseline bundle branch block. IMPRESSION: 1. Unremarkable LEXISCAN infusion. 2. Left bundle branch block. 3. Nuclear reported separately. Rangel Leger MD JOB #: [id number] bk Final Dictated by: Rangel Leger MD Dictated DT/TM: 06/19/23 9:17 Signed (Electronic Signature): Rangel Leger MD 06/20/23 9:30 am Technologist: BERENICE [facility] NM Myocardial Spect Multi Re st/Stresson 06-19-2023 NM Myocardial Spect Multi Rest/Stress Nuclear medicine cardiac SPECT stress test with ejection fraction History: Preop. COMPARISON: None Method: For the rest portion of the examination, the patient was injected IV with 14.0 mCi Dgyssgewch-[id number] and rest SPECT images were acquired. For the stress portion of the examination, the patient was given 0.4 mg of Lexiscan and then injected IV with 31 mCi Dtnovnhxaj-16o-twwhgmkus and stress SPECT images were acquired. Findings: There is a large fixed perfusion defect throughout the inferior wall and inferior septal wall. There is relatively normal accumulation of radiopharmaceutical throughout the myocardium on both rest and stress images with no evidence of reversible changes. There is no left ventricular dilatation. The ejection fraction equals 74% with no focal wall motion abnormalities. IMPRESSION: No evidence of ischemia. 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 Ejection fraction equals 74%. Final Dictated by: Ranjith Miramontes Dictated DT/TM: 06/19/23 11:10 Signed (Electronic Signature): Ranjith Miramontes 06/19/23 11:14 a Technologist: JAYE [facility] Facesheeton 06-16-2023 Facesheet [id number]#1.00OTGTIFF [facility] US Echocardiogram Completeon 06-16-2023 US Echocardiogram Complete DATE OF STUDY: 06/16/2023 US ECHOCARDIOGRAM COMPLETE Aortic root: 3.6 IVSd: 1.0 LVPWd: 0.9 IMAGE QUALITY: Poor. There is limited endocardial definition, off axis and foreshortened images. CHAMBER SIZES: The left ventricle is normal in size. The left atrium is normal in size. The right atrium and right ventricle are not well-visualized and probably dilated. The aortic root is grossly normal in size. WALL THICKNESS: Probably within normal limits. LEFT VENTRICULAR SYSTOLIC FUNCTION: Grossly normal. Images are foreshortened and all wall segments are not visualized. Visually, the ejection fraction appears on the order of 50-55%. VALVES: The mitral valve is grossly normal. The aortic valve is probably trileaflet and opens normally. It is not well-visualized. The tricuspid valve and pulmonic valves are not well-visualized but grossly normal. DOPPLER: No significantly abnormal stenotic or regurgitant flows are identified. No thrombus or pericardial abnormalities are identified. IMPRESSION: 1. Poor image quality study. 2. Grossly normal left ventricular systolic function. 3. No significantly abnormal stenotic or regurgitant flows are identified. Rangel Leger MD JOB #: [id number] bk Final Dictated by: Rangel Leger MD Dictated DT/TM: 06/19/23 9:56 Signed (Electronic Signature): Rangel Leger MD 06/20/23 9:30 am Technologist: [facility] Coding Summaryon 06-14-2023 Coding Summary HTMLBase 64 QbbetgngWNm5oQz+PGhlYWQ+PE 2LYAExV65cvCKpmD8wC5XMQNcW GlatLQWVPMgRKkLsraObZW4gqH NjZXJu IC8+FM0oSQLlZimuwFQsb5C0aO W6O10koh6dTVakfJB9XAPvEmNs zknob3xexIo4IFyvXgsrNbOv QNSryI15QHU0zI98Ug20mJNjfV Dvs3mutKe2NyAkKTQwWXS0aLiz PAbci5VzTEYgA89knUImo0J5 NMBgqMteoRDpUcKkeGM4gY4qLH fnknmaq9ooxgguYbl8gl46rCPh q7X1zCH0P8JhvjQ9ZJQwyIRp FfmihMRQeC7lobrzh3htnjkhEb BiRGMcCKy8VRn7MJXavXogZfXh CA64XPI3OILpcxYfQ4SeXQFy fDkwYfB3m9S7Kf7PA4PXVcjhL2 VNTUFSWTwvdGQ+QR39hf09K0Xy HqqkEld8UXUgFFT0cEP3pA6l YDSxANysm4O0kTX3F5JlxfRhwf 6jk0tzKUJhOSktM94erSNzs6C4 UOQzxKY6XDKsdTouSrDlyN20 Oyc+WOQgeWgve2YsEhnkn3gov0 eroRc0BzrkOMLolwWstNziSBE0 n7VnZj3qGFTywCL8sYQ1eP6n TfDwEtV7VEqoH976TcYpyZNxZv mwJ01dJ6SmrAC+LLWtFyc9OQLh uQezVB3nV9HsEXCfnftdkTJw hBpyVY5kUOUhhiphXRSarL7oNB PoI6o8DxJeJaF5ZBjkL2QoGKUv uvkzIy29zD8nIzWqWoI9HBdf B6BzrsJ4KLCawQCySDjzYNA4H7 6wu9A6XOMmUHXiSHJ5kSR2oQ6e bGlnbjogbGVmdDsgdmVydGlj AUghBCxdB017MSBhsFbiAxPcMW luZyBEYXRlOiAgMDkvMDYvMjAy MzwvdGQ+QYWaUVV6vCkkWSAj lHHwMDuuHf8mpLjqeDpcZE6kYA PpkeagXZGglE3rHVKniZXioBkn IT6cKUDskiirg481DrXwPTB3 UNPxpYKaI1QcuJ1bWoPhQQUmAJ JwY2LtwPLbGVekZ093VChjBuM4 HJEvgkCzY5NuFKIsoQtpDcU6 a1U9Uu0Th3NtlemlZ6DbfNJdGf MhOigzFIq8O8FvKnrytVQ+PC90 QBSuYT72TQe0ILV5rFglGEij LGAnZ6ZbhU7aTaYlPROvNDPiDp c+PHRhYmxlIHdpZHRoPScxMDAl EcYwoHfxWW8kPk2kEVXhBTFi qQhjzCIyAzKdg8pwRGLnEJpbQB 8yaAufN6SiaJH5LNEsd6f3Ls64 W22eG9TdvXY+PCAmwOK9dGB6 sD4dAhIsJpX4EHgmG892GsGgyS RjBuluf9drf2penPj9SgH6IWRl gcQklOvfDTG1f7IkPk10H12b IHdpZHRoPSIxNSUiIHZhbGlnbj 8pxS8zQe2+XEHfbGE1mYJ6rN8y BpYuLaG2VFpaV310RrUenDSx Ofhyh8npl7bclQk6LrUkIRHcay SjoFdoFPS1s6LlKm41H3CkeNmh a7BeEma1yq44oVYgq9D5aNV5 M2OkSDBjtlhyrMFlxMguML8vHN WskiivYWDgqN9iXNBrO1e1EiMb WbQ2NHgyB1AgxnA7YJVxxIWv GFBhfXPIzL6nzlidc6vyvipfUt SeSNQoZVm7KAk7PEDmcSpkSoSb BFL4XzK6CCX4jGJbuT9rbCnm jrprwO1tGsu+ZXC5nDExhGSTLE 1lOjwvdGQ+IPSfWOB9gWvdWRwg BKCobO0rHLReI3z2HiExPzL7 QPejR6KegaJ2NHFsvABzOQMcrU SFjP9emfgxr4ycomnlXxOwGSZd VYh0EDb2OUAbcCnwNrSeXTG7 HuJ4CCG2jMJsbX3alOpfzizciW 9wOyc+OxwcmExaZIO5DGo1G0Bx Rri7CCXpcBtfYA7nwEDtHHsg Qq5lqUsipHvvWH8oIQHxhcdih4 69PmDhk5ouOXNsaKLlPHxdPHG4 G92mm5C4CWBqEOIwDAQ7zZF9 dQ1vaQyttbvifDGxaTuwwmNxeA sjRNdsDZqsX690GZCetDobBzWf GXp9S1BhAzb9YRMkbJncON9y yLQzIMgfDb6psQrdzBppYK1xVW Rrprfxy458ZxPzs3wtHKQqgOIh EWvcPFJ2B70mx9J4VUHsNHAh FIC6bEO0oK6yeTslktiibURuqE nxxyWhgVlgXYskSUvcM612JSRn xNaqIiZmdIj8E4NbTyg8VWNp dBpkYV2gtYWfVYhjDt6vnLmxcH eyTX8cPPFigeeiz219BhYvy5vf YRJnbIGhYQwaFIG9E02lk4N4 UFTtTOGwHSY7lCJ9aH8lwYkdjf ogbGVmdDsgdmVydGljYWwtYWxp A673ITRqwUwzRcEyyDbibhGx QXobRUv5A0MjMckcdME+PC90YW WxEB68gJZprSLwi0glgFs3DvOp CHBcIBM1tBsqZGdks7RkWMQj S91jiIDmo4B4KRLidOyefIBfKw GbpID2pX2fKUpymwuho5qbdpcz Ubcop6jsdo39iT42T16yXOek GCHpPCXbDWVhHJXieJwyju8ahA 9wIi8+IGLkuAX5sQI7uW5uQRUa UhH0GIciC594KmWotMEvAwuf m3sri5gakCl1FyD3ODHixuPleV ylNIR8j8VrAv85C87bVPicMPRf DBUeKYQeXDKqwGbqeg9rjG8i Ii8+TVQteGU9yXZ0bS4xVyBnPv B7HIrhG727MeZkiNRjBadlW30g C8YfoON+MTLoMnm4CTBytGqa JG6dpBFqXPluBe2hEXU2EwWpXm OhUJvlM5LyEWTfyxlribcnxNW9 WFWdHBJocK80Xs5vmIgmWFJd vTVBrU5fxdcoi4okxczeSpYuST AwRLk8ZBq9GGTwhDjoQiNqXPR4 XyK4PCG3rJWtxQ6pkJpugrwh wQ9kC2JiBPYegdgnDj48rL0sEl UnDpG7EVexVrp+D7cRRpvkT3BQ ZIEFDGl6D9QlPmy6XDKrrTak LB0dzVTnDGdxQo8tzWporHfzDI 3lLRWjialsJHSkrI6vIYBqiSZe vHrqFY9nKVJknaxfm462WmWb EJM2DXDyaCTqD6TleU0nFaXuJD AnGXNiR6AavCMcPDhhS821BEer MuT9NSYsjcIeU3UmUWLvzKan IhG9b2H7Ou9nQx8wBS4xSRT3TP 47QB58xCSor2L8dSW5X7UxGQHc vvfqfoyzfSX1MIYjYPSdqE25 rFMqDWudIg1ke4O2t131LJGaUQ WgeZ97Bx6peHhjIOFoiYKWmO7d mmjug0hrfdexDhFjNQZuHRs3 CEo2TQBheNflNyNmXME6OrY9HX M5dMKpbN0gxMartzgimA9fLyn+ WznmWVZdguO0Q3UjBob2LTLj rThsFD7oxXBbULffMj7xiDmqsE xjIP1aCPZkoorhTMWauP1mSKUm lVSfpPqhZJ1tAKZnjhfap404 KlWdVPZ1ADAanFQyO2JokF7lQb KlLLTsLSTcG2NkaWVuGRqpE028 OJvcTkF3NAGfuxTvD6IiBMJt uBggXbW1o3J4By7SFIiFZM82PH 46xDGtm8M0uNN8J9NuBOBldjhw bzevbLQ2CXLyHYZbjM29fOTh BBvwBv3xt7J1a416KYAcKZWycS 03Fb6cdBcsVABezOJBgT5kpllh z8hoprcpVrJfLUSmXFp3WDn8 URKowShjNzXuYSF2MdE1EZA7wS QdgE8coOlhzgaqsC7mIry+T1A8 L4ZnRopnxZC+KI81CWUoGX25 nOMaxQCzg5yyfAj9CjNcYWGhUU B4vIakPKuas0HxOFLmR63liQSz j7C0IPRthSrhrQUmMeBzcDE1 zK2dPUvtsmrgj5mdsrigIbobc1 kaep73nN34L41aSGmeFWRzAJQt OIAcKQMomPkxhs1tpN7aBw7+ WIGpmRG8iZA6cO3fBeRtNbK6SS chR231RaJbbDZtPrwbu0wrt1zq tUl7EmYtMIMeytUgsRyjBBT8 o2IvSj89O70eZOaoAZGsFARhAG OhXLSonGaevn4azO7pLm7+PC9j g7tbcm85aM03sXV+PHRkIHN0 jOxgGUxfHBNhlZ1oSDetCzD4CW EnFqDprG03lYScGKueVn7snOun cPovLZ7yKGYtfgxdr717RhMr r9uzWRAhnPRiMKzhYBS4I87ph3 P3PNAqNPYdJIN9oBM1bA7jfTvy bjogbGVmdDsgdmVydGljYWwt NJkjI282IBNhyThnNvJnwANjX0 gqfiLDUT7lIestoRQ+PHRkIHN0 fScfLQfkLUJwkT4gEBHzV0z7 YbRdIuE1AOiuG3IxhvY5LEEovU LsUZRicSOLxE2yoncfu9pvoxbn QcInLATkWVg9EYt3QYYbvNgh HuVgJBH1GqJ7ATQ5iQHvgJ0fkP pthecybL6rLax+RklOOjwvdGQ+ UVRjQYG1gQrzKIojJXWcrK4a NZEfO0w4IvWzSyL3VSgqZ9Zysw N7PFOyhRFoSSLvtHZTrT2tjljf y8cujrolLnSlVSYsYDi4FGv2 ZGZduJkcVqAtLFG4XpT8IBO0pJ UvpB0yhAttayjdfP6cPtl+TVJO OjwvdGQ+FPFjZBV7iBcgZSer TKEpfJ0jGLHcY4t8RjGqApR8TW mcB4BbatP1RJNsxSAjZJYixLUH eJ6wkfvpa7phsxegNqQuITDc CQj8QAa1UVXzhUrxReXkRUU6Ow O1UBB6hVQmhD5yhEabvrigcU0w Oyc+NVI5CRP7RI69WL43V7Ro PjwvdGFibGU+PHRhYmxlIHdpZH MxNHznDFUjAbVgeBtsZL0wDg4a UXCbRHVokUtffIYxWmMhp1tp YXB (more content not included)... [facility] Provider [place] 06-09-2023 Provider Orders [id number][facility] Orders [id number][facility] Outside Records [id number][facility] [id number]#1.00[facility] Coding Summaryon 05-31-2023 Coding Summary HTMLBase 64 PqrkqlcxPZv3gAu+PGhlYWQ+PE 9LHGYvF87gmHLywB9vO4HXATfX YwcdPCRUIEuTIaWhnhPvLR9awQ NjZXJu IC8+ZK4iAINcOfwpcWZhk1V7oR D2V04yes4lPJgyySW3NYXiLiMl vlvnz0ktkBf6HObvCxmySySu DOOmoJ05LWP2xT32Fq57aRDteV Boq7kpxIy2YnQeBNUpEUN4sOuh XZbbv0KfEOJxF06uoVLet7X8 NDCreCtzmHRiDzUqzLA8xV2oSY nempfgk6rxyxknSjw6rk33pWCe e3F0uHR6L8LiosW4WABlbMIw KkkbzHPEjV8tjppjh2ghbxpsNi BxGMZeXDv7IXq1QYXgmKkbDcQh LG85LRL9XBVspmBiX4GcHNVo cSscPxK2y0D8Wd9IQ3NZBygaA9 VNTUFSWTwvdGQ+RL05vb60P4Yk PyasYhv7SNIsJMF2zOJ6qQ7l STLfPPjcy9D2aUF5B7TnjfGqyi 9dl0qeWOMgHPmcW22ofCAsd3K1 AIXbxNG7FGEavGncMoBrvY39 Oyc+HOYdwHhqh4PrFccpe0wrt5 gwrDg8NmtiNPAfxkTghWudASC0 l6DxUk1hOSWnyMM0yWO4dA0a DuPtOmT0UQcfQ210JsKiaHTbZz kyL31hW9PzbOX+XFFqTqc7GNZj bJfbWK1uN0XpRDUkqgbxkTUw uTxbWU6bIXQilqfxOLYoyR1aYI ZpM4p7FbDeUcS7JJahQ8VkLSXg nbzxGp48oO4xAdMzQeX7ITms V9PmlaH7ZGWwcFBmFEouEAO5W1 5qj1X2SDKmZJKlXCO0fBC7sV8r bGlnbjogbGVmdDsgdmVydGlj CRmaOGpnS904SYWofGrbMnOtAJ luZyBEYXRlOiAgMDgvMjMvMjAy MzwvdGQ+EVQfCAQ2oRieKXTp kEAlCMyuLu6szYedeQuhWB4rJI RoiqipVFWgcA4jZJMncFVtwUsy IY6jWDSaerwis512LgSePZE7 DIPejZPpM3UvnF5pDjTkUSTkBU AqQ1ZsuIDaRBzeS327NWvcDlS3 XRGpsqEjT7GbCMKxfYyzBhK4 s9V4Ud9Nk1KentiqM1OqvLNpOs QjDeexOHf7G5DnZyxroRV+PC90 XFJnPD90ZKf9QOK0hAiaMTxg HRVwB0XboE6aMuLmNGPlQBKrIp c+PHRhYmxlIHdpZHRoPScxMDAl EpIbcUmpIA7jGh7kSGYlVNHx iLtemMYvFrFrt6ajTLAtSPkbJP 6rtKwgA7FljWW5WGBhh7y5Wa04 M18qZ7BakJL+YXJokIG3wSO4 rX4kFqVeFkS6LPapP439IkKruO UtFaykp8aiu7zyvEa6BpE7UXPd iyJnwBrmSJZ2z0BkDl21L61o IHdpZHRoPSIxNSUiIHZhbGlnbj 3iwT5rQs9+SFIpiUM1dDC9tY7t GcRsHeY9ITurD959MjXbwIKq Fltqq9gxm5sijZz1McPuSUTayb MowMhjAHC4h6KuLz68F5FemGlz b2ChDji1vt47oQFrs8P0mPF5 A4UpKVZzowiucNQebHowXK9fJY OlbegsVVMxoQ0rDKWiF0f8AtRy QpQ4WGbwL4KpwpR3ZQIzkBBm MTLixSAOtO6rmlhvf9xyxnpuSc UcJPSzPVm6ZIa0SJWlrBbnWjSm VBI3MhD1TGT1iWIuqO8rtFzj kykqaQ7hKux+YHT4dGEkpFFVZI 1lOjwvdGQ+AEPuCEZ3uNmwELbc XKTxxG3uWZYvK8j3XlXgTbL8 FCoaJ4LxeiZ1EOXssIYtJYMxdL KSfO1glkhzf7avpzcmKxEbPAMc BUp4WMn1XSZxeAsjAbKpJMT2 ImX0URQ0bANwgV6hnEbklyyhqJ 9wOyc+KtclkUjzLDT1JSd3K6Wk Mbm8WQKjvCevLJ8pyYVsVNbe Gi2jhJtviMbmHC0jJMEodxktm7 20QlSjc2rwIZCciHEoGPimWSZ1 F71zq4S9VQFnCWYuPUU7lYR5 nY3qqAcyndydcFNguOlexbLegS gnCLohFGraY293WJWxlAivZnJk WMv3I1FhKpu9GWBavMncWM0x uOAmQDyyFg3viGtymOeeYT6bWC Hanwcob750TmCdz5okZMPbtEEp SOlkIYK4D41bx2J9ZCHfWZJk IGM6qOY9vX3dvEfjngclkZMgbT irlxYbnZhxOWauZTbmI126EFIn bPqbJjFadAu4E8MvDyj2IILp tSyrBK6ybYTyPXmoDc0wwEwzxQ hoMR5iZENmuxosz554YzXpr6xh DUTujQTqSAtgJBV5T65rp3U6 IPXtCWDtGNS6fSJ2jT5nuDilfw ogbGVmdDsgdmVydGljYWwtYWxp Y904SWGwdZhtPuAzbFmdbcQb SSatKQk0S3OgNsgqlTC+PC90YW EkHP54qKHieDJfr4brpQn2FoIu WVCeEKN9vHjwNYevi9SkCIZt D93opZWll1M4HTYfnTyuiWNiUs BbrPS7eI8bHIingzefo1bohbip Gypbp2qakq67jP55K48vASrd ZMAmJPWrFHXiHQQpdMojsi3oqJ 9wIi8+UXQryZX5oEL4gG8pHHTt FsA9VMygE825UvRfzMNdSqto d5fxo2gvjKt0GkR5DAAedgHjuH ylPGL6j1FtAv41D41sRFliCOKu FQUsHHQlLUAyjFkyps4hyW1h Ii8+UYHqfOX5cPH5fO7uQqEzBh H8TDgzD758LoQhsJLxJkqsO37v Y5KeoIQ+YVAzSox4VOJigQeh LH1ndDInQDqcMc1oEFS8YiRtMk JcMEekK9EcTLTzhtnngoegdHS0 AYMyHDWklK55Zv6ijMivORTs eQDOxB8tasyfu2mubsrrMhBzQL RfGFh7LZn3QGBfjPdjYzGoPHG1 YzW4ROL1rHWlpP8fwMntfwhg oX5hR1VrDCPteysmDd97gL4iIb WkLrZ9APzvVvj+A6zRMuowO2BE ZUVPJUh0P9GbTpy1OLYfiEyx PM0nyZWcIAgrNy2pbSzahPzaFD 2uJANfreccACIaiM8nGKGjzEQj xXhrFZ4oBUAuzbdjj787CgGr LHG5KAXmbAGxM1IiiE8qChOsYE ItECMvW8GpiMGgVZqoJ987GAfx NjQ0MTAxymTnO7TdFIYysIrv VlP9q9C6Xh7dUh3dJI1eHHK3KB 29NJ09tTIeg8A6xYI5K8TyPYJx ezjknfllrFI9DHMoCYUaiW09 nYKbHJqwDe9uq4M8k852JYMxWI OroG44Jl9saQbiZWFcnTKQmR0a gzcfd0mtonuhHuEhGRNrTUa6 TOl1BMRohLhjSnWzSFN7RoH8FE D0sBZubK8tlQtpwogbtG2uRxo+ LaubFDStdwD4L9OvCqx7MPUt mThjBF8peEJbBZymLw3viKxpjS rhKG0aCWHmrensFIVsmH1oJEMt yMTukAltOP3kZAUamwceo052 SdPaLOT4AUHmaGAdO3TbqI8bYv KjIGJkRZKiQ0ImaZQhXPxiU986 KTmsZrU6ANPpvaKjQ8TeBIYd gNlcGsK6p3K9Pw0TTRwKLY78RU 98aYApk8D9dWF6O3PlMPVxijpo xigygWX2ZSNrTMEoqK09oDLo PQnlNf9ap4C6p466XLLzVDVbgI 74Fq8ucMcgFBPncNJYzZ0kowpx e9zganpvDoNxGVLcQKb3RAw5 MPFczCnqQnVpEDK4NsA8ENO3yJ MnlE5nmWyaehpstT9zYgn+UmVj uTVyiW6cSF43iYYpmDbppeV5 K3AjMwueaTU+PB09UYElPJ89iN KdhKYqr4favXg4XgOwVGIpJFS5 pNodJVbmv0BiRARzN43ucTPh j6Q4GGLbpPeieYGdSjKpwZA2jS 0gQNsxecltt3akiqfvQyscq8dl bu00lO89P32iIEtgLACsCUBt LVClTKFeqXgsma0vhY2dNw8+PG FtbAZ0yFC9hK4zEdByRsK2NXls E118MyDlhBJfMiwfb5vti2vr rYu7ZqCwRJCjwuWxvUwrMDH2q7 YrQs88L79vUSvnTQGrFTWaMMSt JFAnmHqnbb3gbW8pFs9+PC9j c2fidn66pB69xQS+EFTmWZO2lA fwMUckQZNljN9fOZqeXxZ3DCWr HfFbbP27iCGjHNmfHq3yzQja pMbzOA7pQPOhifqas784OeOkc9 shALIuiFSuFKkjECW7D82tq8D7 DJJuOFLhHOW0sHK1fY3leEss bjogbGVmdDsgdmVydGljYWwtYW baL814SEVpzTvqDjHnwUAhZ8gd ihFWSI2wJvwrzST+PHRkIHN0 pMlvKNmjEHLmvC2jHOAwN9d3Ew CfRjM1ERuvU9CnjlY0VDTetXNy AKYxvPNRxJ9rkcfbe3inygjl AbDpWZCuCRz4VWm6SVRmkNpzDj RwUAR3LrR5KGA9vJCopS7zxObu xdwzmZ6bHuv+RklOOjwvdGQ+ GIXqCIH8yVlpJRciTJQlsE9kKO GtX1q7SwGyBoV6QQecC4JrqiR3 CKNqhANrVYAnvZSGhI7toxgd w7zgwvirDuFhOQTjAAp4WLx3PZ IibQruDpMzOKT7VyB5KIE4zIQa bA1rvBhlywjqnK8vXrg+TVJO OjwvdGQ+BMUnIAZ2bIoqZSluFX TljJ5hKKDlL6n6MwGiFvO2BOlv T3YbfwW1SHSmhTAwQCHdnKAO cV3uashku9sotuyvQuFbHUEbYC c3AFm2FNVmlPifDvYzJHB0ZhM3 IIM8rXHmaW3qxNowstphrQ0g Oyc+PLV4OFE0GI70YD90E5JvVl wvdGFibGU+PHRhYmxlIHdpZHRo VSwbHWIgBfDqwDlcNE4aUh8t ZGV (more content not included)... [facility] Outside Recordson 05-26-2023 Outside Records [id number][facility] - Other Lab Results [id number][facility]22-[facility]23 Provider Orders [id number]#1.00[facility] Coding Summaryon 05-19-2023 Coding Summary HTMLBase 64 CkzitnbwRIa5bWf+PGhlYWQ+PE 1DRFNoP17raJWdyL9kN7NKCQlM SbuiWLDBGGwYKxCoynXiPE7ahS NjZXJu IC8+FI4xMQVxMeenfMDsk2S6uH S1X77lvj4xPEwefBY8BOCdCvTj lbgli3ejsRe0XXtmTrjqMeOu MSHulA07QDJ9hS09Lg28xSGtiG Oap2fppSe1YjEbLPOaGUL6dLav LClne1XbRBBmC36bjSVxi5O8 PVYvoJfbfOCkVsOclED1qY7fGR jkrhxfo8cgkhyiYwn6lz08qPGt y7W3lMA5A8HjlkO9DTMhoUQy XkbtjPFWjZ3lsjnow5orgeyxQl WxUZPlHHj6JBz2DGNvxRysHrUy TZ07WLT8URAgpxXzE8FmGRPw kBabHdS4k4P2Kn9VR1KXMhtjX0 VNTUFSWTwvdGQ+MU88ua56D4Xk KbpeJdn1UMYsUNJ8dXM9lI7l RFNuVZdtg7B1aVY1R2SmcfDusu 4ka2pdQWHuNZtkI35avKKsm8S8 WFPmjCJ4PIIakWtiDeJazP10 Oyc+EUQoeCoyc2WuOubgj1ihv3 admAq8HvacMHAxdwOdqLyiJVO3 m2UdAl8eMCRidDY7yBW0aW7m AlEaKxR5DCfjW935LzDweQEaLg mwJ30yT8OvjUX+FMTmCky9NWNq aDueON1hT4AkGYUseskdiMPf dSblDD3qHCMleetbSOZzqQ7fBU YqL7l1LwWhNdZ9EZelJ2RpFGVg indoMr94kJ3qWgXwYsI4IMgv U4EaudU6JANrhYUsXAdyJGJ6W1 5ao8O3RGPiOVLoISJ6oKA8fD4i bGlnbjogbGVmdDsgdmVydGlj CWupEMxaG121FMTtuDwcPqBtIJ luZyBEYXRlOiAgMDgvMTEvMjAy MzwvdGQ+TSPjGRU1aTubDOGh oFFkMImlNr1osFgwmDrdTI9iQJ WqfjkdWQJrpV8iEWHqmEGnqTgt OD9wEKYdqrfqc903FiDrCEA0 JKPrkWVtD2GmuD3qJvJlKFKgGP QtE9AzlGIqPHzkA626PSpzEbX1 GQYhdrPeT0FxDGAynGnzVdG0 n1Z9Cu7Dv8YyrzixD9ZcsAWaQm OfBucjFKt6E8MxKctrjBU+PC90 IIExGC53SNn3VXA9xAeoOSls UFPkQ7LumS7iJtPlFRZqURItQc c+PHRhYmxlIHdpZHRoPScxMDAl EeJjlOcrCK9uUg3kVUIsYBFx sBmenUMbPgQps6fqFQLiGTrrUC 7vuZocY9JtbHF0CRJio4s0Rf59 U23mG2TukOA+GWIzbWU7zCR0 tH3xMdAiCaY0QOtiW396WuAjqT DyIwrug3gtd3metIk8EwX1LSTr zqKpxVpoIRG5a6ByDy61L35t IHdpZHRoPSIxNSUiIHZhbGlnbj 3ysZ0yRt2+HNBncDL4vEP5fG2b JjOkRzJ8CNzwZ105FlTwcXXc Zgpeo9rth6hssVy8NkVxQNFlcc IpdIqfLPT2v6YoOy50M2YntKcz d9PaCcm2id86tONxx1F1xTI0 K9PfMYPmfzhpuNUulCmhTQ0sNR DmqlwpUQCnnQ0lUMHcO9g3PlJf TkF1SPcaQ3FkbbD2VMImsIOp CJHyeYUOvW0klwchg2jbmqdiJw MkZKXaCTl3NXl6OGNepZwkNaRc SEE6VvM2TFR9yXApcG4meZmb soyipD2gSkb+PKU2qNFivNLNUS 1lOjwvdGQ+ITCfZIS5aRjlKNdx EDUkzM3fIHBlA9i8WeSbJmW3 UCimH1PveuH6XXAehCNpBCOhlB XWwO0doxprv7cvjjdbAvZiXSWn MKf7RYa1CKUaeHymCpJlZXZ3 TpL1GCC0tNKqnC3dmVjovjosrP 9wOyc+BnkrwCpvNUK4LPr6V1Fg Tui6CODkxJtmMZ8cbQSxXKbd As4hxHygqWrsSK4sOWTphbxss8 38SkFsq4aiXARtcJJvCZemPDK1 H27ji3T9CETcBURfSCL8yRV6 zA9ppWrvsableNTwwPqjomCraG mgPRqtJIbtU421DMTbfAdiXxMe RSo6U2TaMhg0JLYlmUglET6i vVMuIZjcGo0qrFgybFzqQA8bSX Vqmgjtw581PyJzq8ywYRPjdTTq UPbqLND5M11op4T9MEGzSSCe MYN5nOI4mG2xdZlktdaimZKhvT muvpPdkRypVAjzCDnjJ871XPLw jUjeHkJzcGe3M3FnEqn1PAUt eWzyWH9mvWEgYIjrBl9cvBfykP tbTB4yBXCrmppyq447TrLwn9jp YCTipKStMFqtPHZ8F64zr9N4 FVBcQVCcDGY1qYR0kO7prOjwyr ogbGVmdDsgdmVydGljYWwtYWxp A622LNBbfUpfCtEgkRhgkqLq XKxlAQs9N5IiGvsabMB+PC90YW SmJH90bALnpXDeo2wouZt2UsAf QAQgDUX9sSjkCHxbf6IfMATi D49izJVbi9Z2OJAkkCahjCOyCs AsaAC0wM8vSAuqjrjrh1abtseb Okfkx5aapj95gO66R24mHJqr WGEvNQGlIFQwVHCdbZeahx1mpK 9wIi8+WVYsyQQ0gPB2kG3nFCXg UhQ2KRgxI858EeIcqYUvWcrd i1bwu4pvgEl2OaP0SGKltpGbxE ejIST0i1ArZg06A13xKObpMGWd DIKkXTKxVXLghJojvq9dbL3z Ii8+GOLdeZD9zLF3pB0xNvQpGp H0MJrpR282AvSinRJpGxibF13s Q0JvrAD+YHAnEhd4XMTnzLhj QH9fvVBfUMviIq5mFSS0LuIgPy BlTMidG1TuLPZhuywsqfsakQO9 MIEyYWHjmW53Wo9arThiKWJa pKINhN4imfwzp7tvrbqrUtJrQR WuNCa5ZCf8URTpiSftSrQlGHI1 AcM6PYV7uTFuvY1hxDwzdtxv rR6cD6MqMPEuphexVi28lR5jSj MzCjW4XHvzRgh+E8fBKumlN5JZ LVKRVKw1Q7MtBvk8PEXwhCpk GD2ryGJkDWfiJp1ayXtggYxfGP 8bYBZyihgaBWAimE7uPJZviJBx kOejTF0nBERefwssy801NgBt JXR9QKBkcFXjK7WknR1uMnKeCC LqENCdH9XpgTAnNFdoP663QBbu XuH1OBYvfmAlU9EgFRKbyRgd RqH1t0Z3Ox3eHp0iBP4cFEI6FQ 33TK05kFIzp6A9oIR6A4LhBVNq kgortqihhPG8LZDbQZPzkC19 sXGsGQdbQw0cr7Y4e670GGKaZR QccB60Iv8olLldOIDepBPWqB6u bfjxr7irsmsrZnTfQYAaMVk3 IFh8ZWVksWtwEqRaLJV0WwM5CO D3sTDrkG1gaAloquefhD3pCvf+ NjabKQLmiqI1K1QgPby3FRSx tFzpMD1kmSYlDActIq9irVoisY tyVX2vMEUlefelIQUmwA8wTFWn zCNupPywNQ5kLBYhugwgw169 SnToKPF4DTNxzSSrZ9BqwF9sIq GpMTMzEPHeP8GlnYMlGZjdK961 HRqhIjE7FWMqpoLyF2FwOLCa fEfjVlL6c6F2Sq9LLOeKXL88UY 51fLNzs0A0nCN5E5PlZGKidlwa hutaaUW9GBIbETCyiM11xTNb ZYlpWj2cl1T6l987RZFiSIItwB 66Kk8ojErfMIHmgWGSiI1ehdqf o0zqyvjbCpBrHWCnZZi3THx9 VJGlmXlsPiEvMIF3WyG6TDS0lW VqzJ7hfYjjuzovyC7nBdq+T1A8 C8DcLdwogDK+XC29BDIpSD56 lACsdFFtd1swiZn1YlNhLYDeJB D8sVgxNSnoz7DjEUUzM07grNRo s4F1DMOjwZncaJShCnEuuGL7 tA2iCEdvgwnif9ulrquzRnpzd0 jpym38bT74V14rXHmbGKHqOSRu QUBbHWIbtLitpp7ynS2hHp4+ GDLqpUV3mWU2aC9jFaZhYkQ8DF dyB886SxTkoGAgDnrax6nls3rb nHu9BgDfPLQeuoTawOkaJHP3 g7KgCv13Q50iFIxeXYLjZTIuYD WoWAQrhChsyd0fvP3lZy9+PC9j s7pves92oN82yPK+PHRkIHN0 gBhaBCdhOBLapH2wSMerUgL3FM CgJqTqmG35hHTqQBqoNu3naPek dQbqEG3ePPHzrojgh477BgMi p0vwBVBwuZBtHVmqFUN7Q10sz0 L5BYMhMSNeNZG2rUP4nV0qmFwv bjogbGVmdDsgdmVydGljYWwt RMypC914EUFzoIzbJrDdyIGfX1 kqvzRACD5gGoczaRD+PHRkIHN0 yBxlHAofKEJhzY2yNIAgL1i2 WoGvFsD3YLxiE3JrbpM6RDBxgH GpEPWfmKRFlC1xdopbr6quwmey NeTqDAKbFOl9HXj5JKHqpIef QlAaJYG2JvX0XAB9gBWdzN6unI stlgwlwX1xJee+RklOOjwvdGQ+ DGYrCJL5rGfuRAspVOMeuR0m FDJkR4y9IxMbYvP7BVxqS9Voam J1QHHpdMMaPUYjxITZeI0pxxcr l9haxnchMiCjVMLsCQs5HCn9 TBXlwPgoVhScZFD8RuQ8UBU3aM VhhF6ibDdkoktbvY4kNew+TVJO OjwvdGQ+GTStRRD7dVbzGLfk NVOxyG5sPGYiC1z5ZyElKaV3XJ izX0WkwbR4QQSwnPVvOSRteJMS xW7tjxvcj7mjyimyGiOkUKCa UQk6GCv0KFBjqYtrKwGiJNI5Yk R4QJX2zUKpxQ0ivDgrikqruK5e Oyc+LUS8VCZ4NQ24NU91F0Jn PjwvdGFibGU+PHRhYmxlIHdpZH AkEOigGDFtShExlOasBH5nYl6f ALAuVKJqaRdkzWWoAwSkb5jk YXB (more content not included)... Normal [facility] Consent Formson 05-18-2023 Consent Forms [id number] [facility] .Auto Diff 105-17-2023 Auto [place] % 7 % Normal 10-20 [facility] Comment on above: Performed By: #### 1 [id number], [id number], [id number] ####[facility] (DEFAULT)[address] [place] [address] 45340 Baso Abs# 0.1 x10 Normal 0.0-0.2 [facility] Comment on above: Performed By: #### 1 [id number], [id number], [id number] ####[facility] (DEFAULT)[address] [place] [address] 67370 Basophils/100 WBC (Bld) 1.0 % Normal 0.2-2.0 [facility] Comment on above: Performed By: #### 1 [id number], [id number], [id number] ####[facility] (DEFAULT)[address] [place] [address] 27929 Eos Abs# 0.1 x10 Normal 0.0-0.4 [facility] Comment on above: Performed By: #### 1 [id number], [id number], [id number] ####[facility] (DEFAULT)[address] [place] [address] Eosinophils/100 WBC (Bld) 1.6 % Normal 0.9-4.0 [facility] Comment on above: Performed By: #### 1 [id number], [id number], [id number] ####[facility] (DEFAULT)[address] [place] [address] Lymph Abs# 1.1 x10 Low 1.3-2.9 [facility] Comment on above: Performed By: #### 1 [id number], [id number], [id number] ####[facility] (DEFAULT)[address] [place] [address] Lymphocytes/100 WBC (Bld) 12 % Low 14-48 [facility] Comment on above: Performed By: #### 1 [id number], [id number], [id number] ####[facility] (DEFAULT)[address] [place] [address] [place] Abs# 0.6 x10 Normal 0.0-0.8 [facility] Comment on above: Performed By: #### 1 [id number], [id number], [id number] ####[facility] (DEFAULT)[address] [place] [address] Neut Abs# 6.8 x10 Normal 1.5-9.2 [facility] Comment on above: Performed By: #### 1 [id number], [id number], [id number] ####[facility] (DEFAULT)[address] [place] [address] Neutrophils/100 WBC (Bld) 78 % Normal 44-88 [facility] Comment on above: Performed By: #### 1 [id number], [id number], [id number] ####[facility] (DEFAULT)[address] [place] [address] CBC w/ Auto Diffon 3 Man Diff? Auto Invalid Interpretation Code [facility] Comment on above: Performed By: #### 1 [id number], [id number], [id number] ####[facility] (DEFAULT)[address] [place] [address] Erythrocyte distribution width (RBC) [Ratio] 14.0 % Normal 11.5-15.0 [facility] Comment on above: Performed By: #### 1 [id number], [id number], [id number] ####[facility] (DEFAULT)[address] [place] [address] Hematocrit (Bld) [Volume fraction] 40.6 % Normal 34.8-51.9 [facility] Comment on above: Performed By: #### 1 [id number], [id number], [id number] ####[facility] (DEFAULT)[address] [place] [address] Hemoglobin (Bld) [Mass/Vol] 14.0 g/dL Normal 11.8-17.7 [facility] Comment on above: Performed By: #### 1 [id number], [id number], 7567539 ####[facility] (DEFAULT)[address] [place] [address] MCH (RBC) [Entitic mass] 34 pg Normal 24-34 [facility] Comment on above: Performed By: #### 1 [id number], [id number], [id number] ####[facility] (DEFAULT)[address] [place] [address] MCHC (RBC) [Mass/Vol] 34 g/dL Normal 26-37 [facility] Comment on above: Performed By: #### 1 4992492, [id number], [id number] ####[facility] (DEFAULT)[address] [place] [address] MCV (RBC) [Entitic vol] 99 fL Normal 81-100 [facility] Comment on above: Performed By: #### 1 [id number], [id number], [id number] ####[facility] (DEFAULT)[address] [place] [address] Platelet 299 x10 Normal 138-427 [facility] Comment on above: Performed By: #### 1 [id number], [id number], [id number] ####[facility] (DEFAULT)[address] [place] [address] Platelet mean volume (Bld) [Entitic vol] 6.5 fL Normal 6.3-10.2 [facility] Comment on above: Performed By: #### 1 5604441, [id number], 6330515 ####[facility] (DEFAULT)[address] [place] [address] RBC 4.09 x10 Normal 3.70-5.30 [facility] Comment on above: Performed By: #### 1 4763640, [id number], [id number] ####[facility] (DEFAULT)[address] [place] [address] 39699 WBC 8.7 x10 Normal 3.5-10.5 [facility] Comment on above: Result Comment: Call ed to Oncology : Franny said didn't need results 1127am Performed By: #### 1 [id number], [id number], [id number] ####[facility] (DEFAULT)[address] [place] [address] CMP Standardon 05-17-2023 eGFR Non AA 53 mL/min/1.73m2 Invalid Interpretation Code [facility] Comment on above: Performed By: #### 1 [id number], [id number], [id number] ####[facility] (DEFAULT)[address] [place] [address] eGFR AA >60 Invalid Interpretation Code [facility] Comment on above: Performed By: #### 1 [id number], [id number], [id number] ####[facility] (DEFAULT)[address] [place] [address] 57728 Albumin [Mass/Vol] 3.5 g/dL Normal 3.5-5.0 [facility] Comment on above: Performed By: #### 1 6364025, [id number], 7251735 ####[facility] (DEFAULT)[address] [place] [address] 15882 Albumin/Globulin [Mass ratio] 1.0 {ratio} Low 1.4-2.6 [facility] Comment on above: Performed By: #### 1 [id number], [id number], [id number] ####[facility] (DEFAULT)[address] [place] [address] 98512 Alk Phos 73 IU/L Normal 32-91 [facility] Comment on above: Performed By: #### 1 5756926, [id number], [id number] ####[facility] (DEFAULT)[address] [place] [address] 93528 ALT [Catalytic activity/Vol] 19.0 U/L Normal 17.0-63.0 [facility] Comment on above: Performed By: #### 1 1406486, [id number], [id number] ####[facility] (DEFAULT)[address] [place] [address] 13670 Anion gap [Moles/Vol] 10.8 mmol/L Normal 5.0-19.0 [facility] Comment on above: Performed By: #### 1 2298762, [id number], [id number] ####[facility] (DEFAULT)[address] [place] [address] 19535 AST [Catalytic activity/Vol] 17 U/L Normal 15-41 [facility] Comment on above: Performed By: #### 1 [id number], [id number], 6347770 ####[facility] (DEFAULT)[address] [place] [address] 33823 Bili Total 0.9 mg/dL Normal 0.3-1.2 [facility] Comment on above: Performed By: #### 1 8987352, [id number], 4436108 ####[facility] (DEFAULT)[address] [place] [address] 43171 Calcium [Mass/Vol] 10.5 mg/dL High 8.9-10.3 [facility] Comment on above: Performed By: #### 1 8462454, [id number], 9668447 ####[facility] (DEFAULT)[address] [place] [address] 78539 Chloride [Moles/Vol] 101 mmol/L Normal 101-111 [facility] Comment on above: Performed By: #### 1 [id number], [id number], [id number] ####[facility] (DEFAULT)[address] [place] [address] 61836 CO2 [Moles/Vol] 27 mmol/L Normal 21-32 [facility] Comment on above: Performed By: #### 1 9652339, [id number], 9698537 ####[facility] (DEFAULT)[address] [place] [address] 72471 Creatinine [Mass/Vol] 1.30 mg/dL Normal 0.90-1.30 [facility] Comment on above: Performed By: #### 1 [id number], [id number], 5769053 ####[facility] (DEFAULT)[address] [place] [address] 96659 Globulin (S) [Mass/Vol] 3.2 g/dL Normal 1.5-4.3 [facility] Comment on above: Performed By: #### 1 [id number], [id number], 9694237 ####[facility] (DEFAULT)[address] [place] [address] 69156 Glucose [Mass/Vol] 87.0 mg/dL Normal 74.0-118.0 [facility] Comment on above: Performed By: #### 1 [id number], [id number], 5479883 ####[facility] (DEFAULT)[address] [place] [address] 56367 Osmolality 270 mOsm/L Invalid Interpretation Code [facility] Comment on above: Performed By: #### 1 [id number], [id number], 6662698 ####[facility] (DEFAULT)[address] [place] [address] 95208 Potassium [Moles/Vol] 4.8 mmol/L Normal 3.6-5.1 [facility] Comment on above: Performed By: #### 1 6013974, [id number], 1445923 ####[facility] (DEFAULT)[address] [place] [address] 32095 Protein [Mass/Vol] 6.7 g/dL Normal 6.5-8.1 [facility] Comment on above: Performed By: #### 1 [id number], [id number], 1312695 ####[facility] (DEFAULT)[address] [place] [address] 64579 Sodium [Moles/Vol] 134.0 mmol/L Low 136.0-144.[address] [facility] Comment on above: Performed By: #### 1 [id number], [id number], 1302604 ####[facility] (DEFAULT)[address] [place] [address] Urea nitrogen [Mass/Vol] 21 mg/dL Normal 8-26 [facility] Comment on above: Performed By: #### 1 7219306, [id number], 3775106 ####[facility] (DEFAULT)[address] [place] [address] Urea nitrogen/Creatinine [Mass ratio] 16.1 mg/mg Normal 4.6-16.2 [facility] Comment on above: Performed By: #### 1 [id number], [id number], 1762461 ####[facility] (DEFAULT)[address] [place] [address] CT Chest W/Contraston 2022 CT Chest W/Contrast _. Examination: CT s can chest. History: Smoker, cough. Comparison: November 21, 2022 1506 hrs. Technique: Multiple serial axial images of the chest from the base of the neck through the upper abdomen with both sagittal coronal reconstructions performed following the intravenous administration of 100 cc of Omnipaque 350. All CT scans at this facility use dose modulation, iterative reconstruction, and/or weight-based dosing when appropriate to reduce radiation dose to as low as reasonably achievable. Findings: The right lung parenchyma shows moderate emphysematous disease scattered throughout the lung parenchyma with scattered areas of atelectasis and scarring. There is a lobulated/spiculated mass within the, base lateral aspect of the right upper lobe extending to the pleura with associated pleural thickening. Axial images image 38. It measures 2.1 x 1.9 x 1.6 cm in the transverse AP and cephalocaudad dimension. It is similar to the prior study.. No pleural effusions. No pneumothoraces. Left lung parenchyma shows moderate emphysematous disease with scattered areas of atelectasis throughout the lung parenchyma. No focal parenchymal abnormalities no pleural effusions no pneumothoraces. Heart and great vessels are intact. In the [id number] no aortic dissection. Limited examination no gross central proximal pulm emboli. No significant periaortic, pretracheal, perihilar or subcarinal adenopathy. In the ebzwx-cx-fkgq of the abdomen there is an area of low-attenuation within the superior aspect right lobe measuring 8 mm and within the lateral aspect of the right lobe measuring 1.4 cm. These were seen on the prior examination likely represent hepatic cyst. The gallbladder is surgically absent There is a type dextroscoliosis of the l thoracic spine with multilevel degenerative changes IMPRESSION THERE IS MODERATE BILATERAL EMPHYSEMATOUS DISEASE OF THE LUNG PARENCHYMA. AGAIN IDENTIFIED IS A SOFT TISSUE MASS WITH LOBULATED BORDERS AND SOME SPICULATION EXTENDING TO THE PLEURA DESCRIBED ABOVE. THERE IS SIMILAR TO THE PRIOR STUDY. DIFFERENTIAL REMAINS THAT OF FIBROSIS, AND OR MALIGNANCY/NEOPLASM. STABLE CORRELATE WITH PATIENT HISTORY CONTINUE FOLLOW-UP NEEDED. Final Signed (Electronic Signature): Qamar Burks MD 05/18/23 11:59 a Technologist: Shaneka RAE [facility] Outside [facility] 05-11-2023 Outside Records [id number]#1.00OTGTIF F [facility] Outside Records [id number]#1.00OTGTIF F [facility] Outside [facility] 05-09-2023 Outside Records [id number]#1.00OTGTI FF [facility] Outside [facility] 05-08-2023 Outside Records [id number]#1.00OTGTIFF [facility] Outside Records [id number]#1.00OTGTIFF [facility] Outside Records [id number]#1.00OTGTIF F [facility] Outside [facility] 05-02-2023 Outside Records [id number]#1.00OTGTIFF [facility] Outside [facility] 04-13-2023 Outside Records [id number]#1.00OTGTIFF [facility] Outside [facility] 03-16-2023 Outside Records [id number]#1.[facility] 03-13-2023 Outside Records [id number]#1.[facility] Lab - Other Lab [facility] Lab - Other Lab Results [id number]#1.00OTGTI [facility] Outside [facility] 02-28-2023 Outside Records [id number]#1.00OTGTI [facility] Outside Records [id number]#1.00OTGTI [facility] Lab - Other Lab [facility] Lab - Other Lab Results [id number]#1.[facility] Other Lab [facility] Lab - Other Lab Results [id number]#1.[facility] 02-14-2023 Outside Records [id number]#1.[facility] 01-31-2023 Outside Records [id number]#1.[facility] Outside Records [id number]#1.00OTGTIF [facility] Laboratory - CoagulationOrde red By: Jing Green) on 01-26-2023 PT Coag (PPP) [Time] 26.1 s 9.0-12.9 [facility] Platelet poor plasma interna tional normalized ratio (INR) by coagulation assay (relatOrdered By: Jing Green) on 01-26-2023 INR Coag (PPP) [Relative time] 2.3 {INR} [facility] Comment on above: INR Therapeutic Rang e A) Pre- and Peroperative OAT started two weeks before surgery. NOT HIP SURGERY: 1.5 - 2.5 HIP SURGERY: 2 - 3B) Primary and secondary prevention of venous THROMBOSIS: 2 - 3C) Active venous thrombosis, pulmonary embolismand prevention of recurrent venous thrombosis: 2 - 3D) Prevention of arterial thromboembolismincluding patients with mechanical heart valves: 3 - 4.5 Prothrombin Time INRon 01-26 INR Coag (PPP) [Relative time] 2.3 {INR} Normal [facility] Comment on above: Result Comment: INR Therapeutic Range A) Pre- and Peroperative OAT started two weeks before surgery. NOT HIP SURGERY: 1.5 - 2.5 HIP SURGERY: 2 - 3 B) Primary and secondary prevention of venous THROMBOSIS: 2 - 3 C) Active venous thrombosis, pulmonary embolism and prevention of recurrent venous thrombosis: 2 - 3 D) Prevention of arterial thromboembolism including patients with mechanical heart valves: 3 - 4.5 PERFORMED BY: [place] [address] [facility] SIGN PAINTER ANDREW SILVESTRE M.D. Performed By: #### P T #### [facility] [address] [place] [address] PT Coag (PPP) [Time] 26.1 s High 9.0-12.9 [facility] Comment on above: Performed By: #### P T #### [facility] [address] [place], [place] [id number] [place] Outside Recordson 01-20-2023 Outside Records [id number]#1.00OTGTIFF [facility] Outside [facility] 01-13-2023 Outside Records [id number]#1.[facility] 01-10-2023 Outside Records [id number]#1.[facility] - Other Lab [facility] Lab - Other Lab Results [id number]#1.00OTGTI [facility] Outside [facility] 01-06-2023 Outside Records [id number]#1.00OTGTI [facility] Outside [facility] 01-04-2023 Outside Records [id number]#1.[facility] Provider Orderson 01-04-2023 Provider Orders [id number]#1.[facility] 12-29-2022 Outside Records [id number]#1.[facility] - CoagulationOrde red By: Jing Green) on 12-16-2022 PT Coag (PPP) [Time] 29.9 s 9.0-12.9 [facility] Platelet poor plasma interna tional normalized ratio (INR) by coagulation assay (relatOrdered By: Jing Green) on 12-16-2022 INR Coag (PPP) [Relative time] 2.6 {INR} [facility] Comment on above: INR Therapeutic Rang e A) Pre- and Peroperative OAT started two weeks before surgery. NOT HIP SURGERY: 1.5 - 2.5 HIP SURGERY: 2 - 3B) Primary and secondary prevention of venous THROMBOSIS: 2 - 3C) Active venous thrombosis, pulmonary embolismand prevention of recurrent venous thrombosis: 2 - 3D) Prevention of arterial thromboembolismincluding patients with mechanical heart valves: 3 - 4.5 Prothrombin Time INRon 12-16 INR Coag (PPP) [Relative time] 2.6 {INR} Normal [facility] Comment on above: Result Comment: INR Therapeutic Range A) Pre- and Peroperative OAT started two weeks before surgery. NOT HIP SURGERY: 1.5 - 2.5 HIP SURGERY: 2 - 3 B) Primary and secondary prevention of venous THROMBOSIS: 2 - 3 C) Active venous thrombosis, pulmonary embolism and prevention of recurrent venous thrombosis: 2 - 3 D) Prevention of arterial thromboembolism including patients with mechanical heart valves: 3 - 4.5 PERFORMED BY: [place] [id number] PATHOLOGIST SIGN PAINTER ANDREW SILVESTRE M.D. Performed By: #### P T #### [address] [address] [facility] PT Coag (PPP) [Time] 29.9 s High 9.0-12.9 [facility] Comment on above: Performed By: #### P T #### [address] [address] [facility] Coding Summary.on 12-02-2022 Coding Summary. CD:[id number] Gh0bWw +PGhlYWQ+CT6QILXbR63qhZSaw Q7DN4uCVT9JBHSWFXPYCM5BDQ0 pvQB1NZquC7XlobQc OyaahUIeRR21GNm6SNM1pOfjMZ nmnX3xmLQpV9y5HyCzQT10rP74 NFmcYFCyZjV6YbCohhglbTBi T3gaYmHnsMUtVaz+PHRhYmxlIH joUFYiRVcdJPZaAeWbcDydFF2f Dt0nUABaQSWjfBngfEWkLeTk j9hmVXGlRGguJI0yuRrqS5BruG Q1CZHyu1c3Gp60bDP+PHRkIHN0 qBosTMerg827YwHjd4ygFVV2 lJIrTCnzFCE3V06qe5R0WIKcGY YdSLP1oVN1yZ8nzLmkbbcvZ8Tz vDHqWcC2HFQ6fVDtrD0apCnr pmlhsK8aEgl+E14ROX6XLQYDOI 7DEcx8N5MiCrbssTM+ST76OJRo BA09tTRlyZPrc1hksFu4CaUi WJVzEVJ4cTjgOZpnx4YsDAUbY0 7umYYhl3K4UUBjkIcezQUeQbXj bVF3uX7jQButzhyte9yldutn Lczlo6efoh51mN06K19mIJzaSJ IzAYK2VEIuZSMduKgjqk6rjA8e Ii8+TRlqj9prd3qypOs2OmFk XYKggfLgfUrdWWX7e4AzAl59P7 HrqVdnl7MmGzp7we08kWIvk9G3 bLW8DOazTZGelX4zPPviOjY2 RLFrIlGboM85rRNlJChqIa1ddF myoZzfNY7uHWRnopbnNIUglW2y QOOocFZexEsvTI8yBTQmfjgy d789VzYyUHV9TCUtgUYpI3YctL 2qEnAnIZJjKNOqO6HatHXwJNzd N175VKdmLtD8HGGuelYtH2Kk KZClwRzlHxW8m5D8Vm2Ww9Ogvm mnICS1RAmvXEZrXzQ9OcEnOgT0 U9FlEci8KILbtJleUT8rJ1Ga LAFlpsdqxzfanYZ1KYXmKBBboR 60oHGeBRtrJv0ug4C2d353DMCz STZelV32Nk1qcCvcCMOadNQG sZ5naqeaw2atnlqgPiJmWUKjVH g0BZv4WSGylFagUsNfEEO0XfH7 KYG2sLMziI6ckCtkzwigaM2r Oyc+L32keA9qYQU0PAK6kpljHS AlqiBqRI94RS26H3QeCozfnGIg bGU+RWVjkvDooJjjRY9cTfIc c5lmr5ZcXCpvO4OjJVJwBAbuCg v3ZBSyBDU2fZO9uP4gLNRyPBxt s4L6sJX9S3DyvaQehe4re3hb BZExJLskT58csFXwa0F3UGJipW C2EQMtzXlcNgCxfY78Lil+PGNv kNrhq7HjQwjnz1scm4ymdTw0 SoAuKJQlyiQzxLssGJV6e4KpOe 83L34vXRwoEAVjRVTmPZUwFEFz zWiiut0gtX8cMi3+PGNvbCB3 rAY5rE1nKYLnOmK2JWtdW947Wg HaoAFmVsojh9blp9wdpBt8RnCr PVMcryZepMcdMDJ6f1HtOs68 O54jSNlgZNGxFQFpXUTnNQUgoN dwmf7asM3qGo7+GZ4jl2kdoj08 eC35hZL+QKCxPCO0mSfwNDrf SGVfrU8uFHpkRgP2OWHoTjLqbA 37dLVmCQueTi1pbWjxvSwzUW8n YLEkglcgh546TnEig5yqDYCv uZDwYLuzZEW6N40bi7T3FDBpLG GwDJF6aJA3oW4juZmbtjzvlAZq xZouzcUlmZpiTSzsAOrdR244 IHRvcDsnPlBhdGllbnQgTmFtZT m7E8EgAqw3FRLkxKwmGC8eeBWy PExfTw4mgTbqtWlrIQ5dBJKk iuuae038BpMfg0qoPYVliXWuUV esTQC7R00hk0W5SPPxZKNjYUF0 jCZ0aA2xyTjzyldysKAorPyx abZxnEncDAiqADpzH035HAAcrX uvLqXdwlQkYARzqZG8QZ84JE32 aTWvi3H3cEP5U0QcTTAnwjdw zlofzGA4DENbMGSofZ03Sb3pfC qoLf0eJERxKWL8JVHhoSVjK8Wb dI7iBmAbELOvVKIzK3RtcXHe KUtiQ108NFhcAcI1YYDcyzQgG1 AqBGKzmVvuUfO4n3U4Pc7SS7T2 HX43KK69nBCth2I8bHZ8W2Fx XARfpgqysclpiGE7KCNxDGWvbE 45Bt3kuUrbXg1lBSRqFFX5LZPc dTZhY2UenL8bEmZhAKXoFUPg S2JqvQQmUIumR718ZGavAtG7US AfwiCaK2SoDGBgvFaxHwN5f3Q9 Xt1TEVi9AM46LI99yKNmv2W9 aCV7K9DtIPVsqomsomudzHT8MH BfQESfrH74Ti1ydTcsWc1iTJTf PRU7WSYgaRDbD1UsdP1tLzBn SKZxXFTgS7QllNYoZBllA509PW rzKvB9LRZhcpWyT4IcKAYkvMgh YkB7v3V3Uy7ZFDJoQG82CVY6 uOA4YL61HF10J8LaQqgnaOGqsL U+PHRhYmxlIHdpZHRoPScxMDAl LgSdqYwxGP9wVj1zZBDcEBBe jKnrlYPcVgVxj3yhGJZqUVjqXI 6mpIxqB9LsuGQ8GNEoa6s4Mx35 H04oW2LbyEW+GCOcjEC7kEK2 gP2sLwWwJkK3WWuxX695YxTipZ KwXrtih2uxl0nfhBt4VaW9LWOi dkAuqLcgADB4d0WrDq22S38i IHdpZHRoPSIxNSUiIHZhbGlnbj 9vrJ2sLu8+TLKggKF7eXQ9kE5l OlMxHwR9SRhaA860AfIwqHGh Oojiq6fnx4xanWm8VrSeHJDnab HtuUmwBCN3p7QzMa91A1IewFls g6HbYbi9eo19pFZsj8E1aHT8 K5FvUGQoiqbqzPDumIgsSG0qYD DxrtkrCFYjcY4eOPFfZ0t4MvGv VzM3WJzeZ4PtssE7ACInhQWx JDteIZR4E17fg8X8CQOrYKFpWZ X4uZS3cB4jzAosdjfezXSqtSsz wkDvwAaiGOksMGqbB100KFQi cYcuOEWdlQ7aFWNcyBSooEqgYV 4wNTBpbjsnPktJUkssIFdBTFRF UjwvdGQ+HAAxUEK1jEqyFSmi FBXvvG7oDAQaE5y0BtTkPdJ9WY zqV4ToTKVzlvhgJk45zO6mEcDs BcU9LQvmR2PtukT7OSBqiFPp VYuoIMQ9B75xx3D0ZPUhSLGyPX T7cTM4nN2iqIvfqchajREpfLos rbHucUhaOZgzAVvsH235FCVf aDusXmJeVzV2CfG8QSZ8W6AxTe j4WXOavEslAQ1odVUiHHgyAj5g sYscsXzyMG7uDTYzrehjRAIg iD5eTDZveSIysAftZM9yECWzzi wrs630XoPgACH5QTQfaWSrM9Uf oJ3fErAnFGCpDIQjW8EhvLTl QUenK125QAmoGqH9KLKznuAkF6 QrBSMnfXgsJhE9z6I1Ov76AEQZ ZWFyczwvdGQ+TVFyLCM3pVwh SSebVRIroI1yBBYtM8w2NcMeEk E1PInkQ0NcXMUehtalCg83tX7r RcSpHsH0QGukU2ZhhzJ1GEFw xSMuPNucOCN6A00fi8F9MRSaHG FcXHG0hNF4tD2diMqfwpgjpGKb uMbvjqWslOaxRYfpKVqqB065 UYMtaHuyNe5vxEK7I2CnOew2YX LphAplYV5pvOQsGOlwRx0twXwv wUvaIP5gHLBusfmlJYPnqF0z TZTyjLLjlOgmJZ4qQARvphmde2 81FoIwYFX2DKZcqTHbU9CmhC9u YoOmSGIjDVCeU4YcvNWrDQqc Y319RZhwKlB8FDRokdCsZ9RcEB PolHwjDmV3w1H5Ce8PYTTsHIVj qMPaEkQ5Q9EpIfocyTX+PC90 TFQeOL02bQWhuEHyl5aspDa4Yq AzZMJgVDV9xEyzEIfjh8WuDOFk C97scSMbb5N9EDAjsXxctCVs ExAkdBG4tS6fZDfwhstow0svob cjKrrfz5cqdk17kS71N17oNEew LNMtCUNmIAJkSWLuuDzyad8c fY3pLg7+IQMblRG1dXN7dG1nSb QbIzY3PLnhS058UsZwiFEmJazs f7iwm1opyPv6YnBcRUTbfzDt yJlnYCQ4t0EyBm83M13fONwdWJ QeJXPtUKZeCJRyvGplzk4rhT1t Ii8+ON8ul9yead36jI95rNM+ SZFxZYT3iWgqMSyeLLZzcH5nOS zkRqB8TNDmMrSbiX62kBHcKWzp Nf3plXuvoGlvHF8eZVEfkfwi r561HwWhn0cwGEFxkLHuDTuwAR V2D63sm8E0QSCmTRDuRLK8iNI2 yF2akErpvbyryIEgvPifbhGr bFntRHfhWTsjT835CPQisDpzQg OujEPsP7lkmhDRXY9jInvfsSQ+ MUJyACY5uQwfSNkiBDHahL3j KNKrQ6e9FlQaIgF0FAunF4Wxjk B3UXPgeXAgQPJinCDKuU7ilrsk y1mvahbqOlRoBFOrRQv9MWu8 OFFxlYmdVoOzKLJ5MgH4HGT0vK UylY6rlDvbblissB1uUja+RklO OjwvdGQ+XECaGMO9iDthRKjs SYCsmB1sUEVwZ5u4NnJaDuL7TQ qjG6CettQ5WMLwuXGjAMDsvQRI bT3rgoaly0oyolwaWeLxEPKd XBq1QAx4EWGjrLcmRoXjJGJ7Ah H1QRD8cYYvpD0baPacvajjgR1f Oyc+TVJOOjwvdGQ+PHRkIHN0 qMivWVfhGIMoxS1rWMVnH4e9Qh OoVpS8EOxzI9JoiuH5KPRvxTSi ZXKdsZVGkD5ixmgqx9pvvstg BhZeCCGmULy0EVl6IBIldQwlAf TaGBT2CqO4OVX7eABilN8bkVoc mynlcO3cOap+TNY6GNJ6DN94 IY15J4VfWydkbWLohXO+PHRhYm xlIHdpZHRoPScxMDAlJyBzdHls WY0iLr1hUMWeSWDudKlqpWSu OiBj (more content not included)... Normal [facility] COAGULATIONOrdered By: Osiel Lemus on 11-30-2022 INR Coag (PPP) [Relative time] 2.7 {INR} Invalid Interpretation Code [facility] Auto Coag PT Coag (PPP) [Time] 31.2 s High 9.4 - 1 2.5 second(s) [facility] Auto Coag PTon 11-30-2022 INR Coag (PPP) [Relative time] 2.7 {INR} Invalid Interpretation Code [facility] Comment on above: Result Comment: INR results are specifically intended to assess patients stabilized on long-term Anticoagulation therapy suggested INR?s ?Less Intensive Anticoagulation? 2.0 ? 3.0 Conventional Range 3.0 ? 4.5 Performed By: #### 2 [id number] #### [facility] [address] [place] [address] PT Coag (PPP) [Time] 31.2 second(s) High 9.4-12.5 [facility] Comment on above: Result Comment: 15 d ays - 4 weeks 1 - 5 months 6 -11 months 1- 5 years 6-10 years 11 -17 years Mean: 11.2 (9.5-12.6) Mean: 11.0 (9.7-12.8) Mean: 11.0 (9.8-13.0) Mean: 11.3 (9.9-13.4) Mean: 11.7 (10.0-14.6) Mean: 11.8 (10.0 - 14.1) Pediatric Reference ranges were obtained from a study by Jorge Alberto Weaver et al. prepared from 1437 samples obtained at 7 different centers using the same coagulation reagent and instrumentation as [facility]. Currently there are no coagulation studies available worldwide for children to 14 days, and no normal ranges. Performed By: #### 2 [id number] #### [facility] [address] [place] [address] Physician Orderon 11-30-2022 Physician Order [id number]:127 Normal [facility] Physician Orderon 11-29-2022 Physician Order [id number]#[id number]:127 Normal [facility] Vital Signs Date Time Vital Sign Value Performing Clinician Faci lity 11-03-2023 11:33-0500 Body height 177.8 cm Katrin Pepper Work Phone: [facility] 11-03-2023 11:33-0500 Body mass index (BMI) [Ratio] 33.72 kg/m2 Katrin Patterson MD Work Phone: [facility] 11-03-2023 11:33-0500 Body weight 106.59 kg Katrin Pepper Work Phone: [facility] Encounters Encounter Date Encounter Type Care Provider Facility Start: 12-19-2023 End: 12-20-2023 ambulatory JING CAMARILLO MD Facility: [facility] Start: 11-21-2023 End: 11-22-2023 ambulatory JING CAMARILLO MD Facility:[facility] Start: 11-03-2023 End: 11-04-2023 ambulatory [facility] Start: 11-03-2023 End: 11-03-2023 Office outpatient visit 15 minutes Katrin Patterson MD Work Phone: [facility] Comment on above: S/P reverse total sh oulder arthroplasty, left (Primary Dx) Start: 10-25-2023 End: 10-26-2023 ambulatory Franny Lyman Facility:[facility] Start: 10-17-2023 End: 10-18-2023 ambulatory JING CAMARILLO MD Facility: [facility] Start: 10-10-2023 ambulatory [address]ING [address]O MD [facility] ity:[facility] Start: 09-19-2023 End: 09-20-2023 ambulatory JING CAMARILLO MD Facility: [facility] Start: 08-29-2023 ambulatory Umang Abad MD Facility:[facility] Start: 08-22-2023 End: 08-23-2023 ambulatory JING CAMARILLO MD Facility: [facility] Start: 08-01-2023 End: 08-02-2023 ambulatory RUGEN M CRIS Facility:[facility] Start: 08-01-2023 End: 08-01-2023 Lab Drop off RUGEN M CRIS [facility] Start: 07-18-2023 End: 07-19-2023 ambulatory JING CAMARILLO MD Facility: [facility] Start: 06-21-2023 End: 06-22-[address] KATRIN PATTERSON Facility:[facility] Start: 06-17-2023 End: 06-18-2023 ambulatory JING CAMARILLO MD Facility: [facility] Start: 06-16-2023 End: 06-21-2023 ambulatory Tam Rogel Facility:[facility] Start: 06-08-2023 End: 06-09-2023 ambulatory JING CAMARILLO MD Facility:[facility] Start: 05-22-2023 End: 05-23-2023 ambulatory JING CAMARILLO MD Facility:[facility] Start: 05-17-2023 End: 05-18-2023 ambulatory JING CAMARILLO MD Facility:[facility] Start: 05-16-2023 End: 05-17-2023 ambulatory JING CAMARILLO MD Facility: [facility] Start: 05-09-2023 End: 05-25-2023 ambulatory JING CAMARILLO MD Facility:[facility] Start: 04-16-2023 End: 04-17-2023 ambulatory JING CAMARILLO MD Facility: [facility] Start: 01-26-2023 End: 01-26-2023 ambulatory Jing Camarillo Facility:[facility] Start: 01-26-2023 End: 01-26-2023 ambulatory PHYSICIAN NO [facility] Work Phone: Start: 01-26-2023 End: 01-26-2023 Departed Referred PHYSICIAN NO [facility] [place] Work Phone: Start: 12-16-2022 End: 12-16-2022 ambulatory Jing Camarillo Facility:[facility] Start: 12-16-2022 End: 12-16-2022 ambulatory MD Jing Camarillo Work Phone: [facility] Work Phone: Start: 12-16-2022 End: 12-16-2022 Departed Referred MD Jing Camarillo Work Phone: [facility] [place] Work Phone: Start: 11-30-2022 End: 12-01-2022 ambulatory NIKKO GONZALEZ Facility:[facility] Start: 11-30-2022 End: 11-30-2022 Lab Drop off JING CAMARILLO [facility] Start: 11-30-2022 End: 12-01-2022 ambulatory JING CAMARILLO Facility:[facility] Start: 11-29-2022 End: 11-30-2022 ambulatory NIKKO LISA Facility:[facility] Start: 11-29-2022 End: 11-29-2022 Lab Drop off NIKKO GONZALEZ [facility] Procedures Date Procedure Procedure Detail Performing Clinician Start: 11-03-2023 Follow-up visit Follow-up KATRIN PATTERSON Start: 08-26-2021 H/O: artificial joint History of left shoulder replacement Katrin Patterson MD Work Phone: Start: 08-26-2021 History of repair of inguinal hernia H/O inguinal hernia repair Katrin Patterson MD Work Phone: Plan of Treatment Date Care Activity Detail Author Start: 05-29-2025 DTaP,Tdap and Td Vaccines (2 - Td or Tdap) DTaP,Tdap and Td Vaccines (2 - Td or Tdap) [facility] Start: 11-03-2024 Adult BMI Screening Adult BMI Screening [facility] Start: 11-03-2024 Tobacco Screening Tobacco Screening [facility] Start: 02-01-2024 End: 02-01-2024 Patient encounter procedure 02/01/2024 11:00 AM EDT Office Visit [facility] [address] [address] Katrin Patterson MD [address] [place] [address] [facility] Start: 06-09-2023 COVID-19 Vaccine ( season) COVID-19 Vaccine ( season) [facility] Start: 06-09-2023 Influenza vaccination Influenza Vaccine [facility] Start: 2008 Fall Risk Screening Fall Risk Screening [facility] Start: 1993 Administration of varicella zoster vaccine Zoster (Shingles) Vaccine (1 of 2) [facility] Start: 1961 Adult BMI Follow Up Plan Adult BMI Follow Up Plan [facility] Start: 1955 Depression Screening Depression Screening [facility] Start: 1943 Medicare Annual Wellness Visit Medicare Annual Wellness Visit [facility] Immunizations Immunization Date Immunization Notes Care Provider Fa [facility] 07-21-2021 influenza virus vaccine, unspecified formulation Katrin Patterson MD Work Phone: [facility] Payers Date Payer Category Payer Self-pay [id number] 2022 Medicaid [employer] MEDICA[employer] [place] [employer] [employer] [place] [id number] 2022-Present [phone] [address] [address] [place] [address] [id number] [id number] 2022 Medicare AETNA MEDICARE [facility] [id number] 2022-Present [phone] [address] [address] [place] [address] [id number] [id number] 2022 Medicaid [id number] 2021 Medicare [id number] 1945 Unknown [id number] 2.840.1.095424.3.579.2.727 1943 Unknown [id number] 2.16.840.1.967686.3.579.2.727 1943 Unknown [id number] 2.16.840.1.301664.3.579.2.727 1943 Unknown [id number] 2.16.840.1.574770.3.579.2.727 1943 Unknown [id number] 2.16.840.1.257499.3.579.2.1286 1943 Unknown [id number] 2.16.840.1.926475.3.579.2.1286 1943 Unknown [id number] 2.16.840.1.589407.3.579.2. 1943 Unknown [id number] 2.16.840.1.399222.3.579.2. 1943 Unknown [id number] 2.16.840.1.340153.3.579.2. 1943 Unknown [id number] 2.16.840.1.495453.3.579.2. 1943 Unknown [id number] 2.16.840.1.074110.3.579.2. 1943 Unknown [id number] 2.16.840.1.663649.3.579.2. 1943 Unknown [id number] 2.16.840.1.520404.3.579.2. 1943 Unknown [id number] 2.16.840.1.464704.3.579.2. 1943 Unknown [id number] 2.16.840.1.695256.3.579.2. 1943 Unknown [id number] 2.16.840.1.531385.3.579.2. 1943 Unknown [id number] 2.16.840.1.970720.3.579.2. 1943 Unknown [id number] 2.16.840.1.522295.3.579.2. 1943 Unknown [id number] 2.16.840.1.605202.3.579.2. 1943 Unknown [id number] 2.16.840.1.079317.3.579.2. 1943 Unknown [id number] 2.16.840.1.599872.3.579.2.718 1943 Unknown [id number] 2..840.1.534063.3.579.2.718 Unknown [facility] Health Claims [id number] Unknown [id number] ..840.1.011708.3.579.2.531 Unknown [id number] 2.840.1.435406.3.579.2.531 Social History Date Type Detail Facility Tobacco smoking status [facility] Start: 08-17-2023 End: 11-03-2023 Sex Assigned At Male [facility] Start: 1945 Sex Assigned At Male [facility] Start: 04-05-2023 Tobacco smoking stat [facility] Ex-smoker [facility] History of tobacco use Current smoker [facility] History of tobacco use Cigarette Smoker P [facility] Start: 04-05-2023 End: 08-17-2023 Cigarettes smoked current (pack per day) - Reported 1 [facility] Start: 04-05-2023 Tobacco use and exposure Smokeless tobacco non-user [facility] Start: 11-03-2023 Alcohol intake Lifetime non-d ja (finding) [facility] Within the past 12 months we worried whether our food would run out before we got money to buy more. Never True [facility] Start: 1945 Sex Assigned At Not on file [facility] Medical Equipment Procedure Code Equipment Code Equipment Origin al Text Equipment Identifier Dates Bearing Hum 36mm Cmprh +3mm Shldr Prlng Rvrs Rtn - [id number] Start: 06-23-2023 Tray Hum Cmprh + 5mm Std Shldr Rvrs - [id number] Start: 06-23-2023 Graft Bn Cllr Bn Mtrx Sm 1cc Vivigen Frmbl Rpl [id number] Rpl Special [id number] - [id number] Start: 06-23-2023 Screw Bn 20mm 4. 75mm Va Hx Hd Ti Cmprh 3.5mm Strl rs Shldr - [id number] Start: 06-23-2023 History of Present illness Narrative 11-03-2023 Katrin Patterson MD - 11/03/2023 11:15 AM EST Note Date & Type Note Facility 11-03-2023 History of Present illness Narrative [facility] Note Samantha Lara : 1945 DATE: 11/03/2023 PCP: JING CAMARILLO MD Chief Complaint Patient presents with Left Shoulder - Follow-up S/P reverse total shoulder arthroplasty on 06/23/23. Pain scale 9/10 patient can not raise arm up. Patient just finished therapy. X-ray taken 11/03/23. DIAGNOSIS: S/P reverse total shoulder arthroplasty, left DATE OF SURGERY: 06/23/23 Procedure Name: 1) Left shoulder explant of total shoulder arthroplasty 2) Left shoulder removal posteriorly dislocated humeral head 3) Left shoulder irrigation and debridement skin, soft tissue and bone 4) Left humerus open reduction internal fixation humeral shaft fracture with Arthrex Fibertape cerclage suture 5) Left shoulder open reduction internal fixation greater tuberosity with Arthrex Fibertape cerclage suture 6) Left shoulder revision to reverse long stem total shoulder arthroplasty SUBJECTIVE: Samantha Lara is a pleasant 77 y.o. male who [facility] for a follow up postoperative evaluation almost 4 months after the above outlined condition and procedure. Patient presents today in wheelchair with healthcare aid. He complains of pain currently. The patient localizes the pain to in the anterior glenohumeral region. He describe the pain as dull , and he does state that pain increases to a 9/10 in severity on occasion. Overall patient feels he is gradually improving. denies any fever, chills, or other constitutional signs or symptoms. The patient has been in physical therapy. Patient denies numbness, tingling, or color changes to the arm. he is currently taking Tylenol for pain. Review of past medical history, medications, allergies, and review of systems reveals no pertinent updates unless noted above. OBJECTIVE: There were no vitals filed for this visit. Body mass index is 33.72 kg/m . GEN: On exam today, Samantha is in no acute distress and answers questions appropriately for his age. SKIN: No unusual rashes or lesions on the upper extremities. MUSCULOSKELETAL: The upper extremities were examined with a focus on the left shoulder(s). The opposite extremity was used as a comparison. 1. Inspection: Incision well healed. No Edema or ecchymosis. No erythema or drainage. 2. Palpation: Nontender to palpation. 3. Range of motion: FE: 70 A 110 P ; ABD: 60 ; ER: Neutral ; IR: Buttock 4. Strength: Intact bilateraldistal motor exam with EPL, flexion at IP joint, digital ABDuction, digital ADDuction, digital flexion 5. Special tests: Intact Dalton. Intact Belly Press. NEUROLOGIC: Samantha had normal sensation to light touch throughout the median, ulnar, radial and axillary distribution. CARDIOVASCULAR: Samantha corado upper extremities were warm and well perfused with 2+ distal pulses. IMAGING: Healed humeral shaft fracture. Reverse TSA in maintained alignment. ASSESSMENT: 77 y.o. male with S/P reverse total shoulder arthroplasty, left. PLAN: Continue treatment protocol. We have agreed upon the following treatment plan: Discussed given patient's preoperative condition that he is actually performing very well at this point postop. Reviewed XR completed today.The fracture is now healed. The reverse hardware is in appropriate alignment. Able to progress with ROM with physical therapy. Discussed that this will take a full year for recovery. 1. Activity / Limitations: Progressive weight bearing. Patient was instructed on home exercises. 2. Medications / Modalities: OTC Anti-inflammatories and Tylenol as needed 3. Protection / Bracing: None 4. Referrals / Orders: Orders Placed This Encounter Procedures X-ray shoulder left minimum 2 views 5. Imaging / Follow-up: Return in about 8 weeks (around 12/29/2023) for left shoulder , with XR , post op . 6. Other: None The patient verbalized understanding of this plan and were in full agreement.Patient is to call the office if he develops any worsening pain or symptoms Renae Valdez PA-C 11/03/23 I have seen, spoke directly to, personally examined and evaluated the patient in conjunction with the PA. I was directly involved in the evaluation, examination, management and treatment plan. I have reviewed pertinent imaging. I reviewed and confirmed the accuracy and completeness of relevant details of the PA's note. I discussed the treatment plan with the patient. I agree with the documentation and plan as outlined in the PA's note, except as noted below: No changes. As stated above in note. Katrin Patterson MD documented in this encounter [facility] Evaluation + Plan note Note Date & Type Note Facility Evaluation + Plan note No data available for this section [facility] Evaluation note Note Date & Type Note Facility Evaluation note No assessment information [facility] Work Phone: Evaluation note Note Date & Type Note Facility Evaluation note Diagnosis S/P reverse total shoulder arthroplasty, left- Primary S/P reverse total shoulder arthroplasty, left documented in this encounter [facility] Hospital Discharge instructions Note Date & Type Note Facility Hospital Discharge instructions No data available for this section [facility] Instructions Note Date & Type Note Facility Instructions Not on filedocumented in this en counter [facility] Progress note Note Date & Type Note Facility Progress note No data available for this section [facility] Advance Directives No Advanced Directives Records Found Advance Directive Response Recorded Date/ Time Advance Directives No August 11:33am Advance Directive Response Recorded Date/ Time Advance Directives No August 12:33pm Latest Code Status on File Code Status Date Activated Date Inactivated Comments Full Code 06/23/2023 3:15 PM 06/29/2023 4:42 PM Chief Complaint and Reason for Visit Chief Complaint z79.01 Summary Purpose Family History No Family History Records FoundNo Family History Records Found No data available for this section No Family History Records FoundNo Family History Records FoundNo Family History Records FoundNo Family History Records Found Additional Source Comments Patient Care team informatio n (unrecognized section and content) Team Status: Inactive Member Role Status Dates Jing Camarillo MD Attending Provider Active Team Status: Active Member Role Status Dates PHYSICIAN NO FAMILY Primary Care Provider Active Team Status: Inactive Member Role Status Dates Jing Camarillo MD Attending Provider Active PHYSICIAN NO FAMILY Primary Care Provider Active Team Status: Inactive Member Role Status Dates PHYSICIAN NO FAMILY Primary Care Provider Active Jing Camarillo MD Attending Provider Active Ec Teacher Relationship Specialty Start Date End Date Jing Camarillo MD [address] [place] [address] PCP - General Family Medicine 07/23/21 Goals (unrecognized section and content) Goals may be documented in a n alternate section (unrecognized sect ion and content) No Status Records FoundNo Status Records FoundNo Status Records FoundNo Status Records FoundNo Status Records FoundNo Status Records Found INFORMATION SOURCE (unrecogn ized section and content) DATE CREATED AUTHOR 02/04/2023 [facility] DATE CREATED AUTHOR AUTHOR'S ORGANIZ ATION 03/22/2023 [facility] DATE CREATED AUTHOR AUTHOR'S ORGANIZ ATION 09/05/2023 [facility] DATE CREATED AUTHOR AUTHOR'S ORGANIZ ATION 11/05/2023 [facility] DATE CREATED AUTHOR AUTHOR'S ORGANIZ ATION 11/05/2023 [facility] DATE CREATED AUTHOR AUTHOR'S ORGANIZ ATION 12/28/2023 [facility] Reason for Visit (unrecogniz ed section and content) Reason Comments Follow-up 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 Pain scale 9/10 patient can not raise arm up. Patient just finished therapy. X-ray taken 11/03/23. FOR RECORDS PERTAINING TO PATIENTS WHO ARE OR HAVE BEEN ENROLLED IN A CHEMICAL DEPENDENCY/SUBSTANCEABUSE PROGRAM, SOME INFORMATION MAY BE OMITTED. This clinical summary was aggregated from multiple sources. Caution should be exercised in using it in the provision of clinical care. This summary normalizes information from multiple sources, and as a consequence, information in this document may materially change the coding, format and clinical context of patient data. In addition, data may be omitted in some cases. CLINICAL DECISIONS SHOULD BE BASED ON THE PRIMARY CLINICAL RECORDS. [email or web address] provides no warranty or guarantee of the accuracy or completeness of information in this document.
[2023-12-28 20:16] LABS: INR 2.84; Prothrombin Time 28.4 sec (9.0-11.6)
== END 2023-12-28 19:05 | disposition home or self-care (01) ==
LOC: LAB 19:04
DX: Z79.01 Long term (current) use of anticoagulants (principal)
CPT/HCPCS: 36415; 85610